=== PATIENT | male | born 1975 | race Caucasian/White ===

== ENCOUNTER 2025-06-25 09:13 | Inpatient (IN) ==
[2025-06-25] MEDS: SODIUM CHLORIDE 0.9% 1,000 ML IV ONE (09:25)
[2025-06-25 09:40] LABS: Hematocrit (blood only) 50.9 % (42.0-52.0); Hemoglobin 18.0 g/dl (14.0-18.0); Immature Granulocytes # (auto) 0.02 K/uL (0.01-0.20); Immature Granulocytes % (auto) 0.2 %; Mean Corpuscular Hemoglobin 31.4 pg (25.0-34.0); Mean Corpuscular Volume 88.7 fL (80.0-100.0); Platelet Count 200 K/uL (130-400); RDW Standard Deviation 38.3 fL (36.4-46.3); Red Blood Count 5.74 M/uL (4.70-6.10); White Blood Count 9.64 K/ul (4.8-10.8)
--- NOTE | 2025-06-25 09:45 | XRay Report ---
Clinical History: Chest pain Technique: A frontal view of the chest was obtained Findings: There are no confluent pulmonary infiltrates. The heart size is at the upper limit of normal. No pleural effusion or pneumothorax is seen. There is no definite pulmonary nodule. No fracture is noted. No foreign body is seen Impression: No active disease Electronically signed by Negro Beckman 06-25-2025 09:45 AM
[2025-06-25 09:58] LABS: Anion Gap 15 (3-11); Blood Urea Nitrogen 14 mg/dl (6-23); Calcium 9.7 mg/dl (8.6-10.3); Carbon Dioxide 17 mmol/L (21-32); Chloride 106 mmol/L (98-107); Creatinine Clr Calc Pharmacy 101.0 ml/min; Glucose 124 mg/dl (70-99(Fasting)); Potassium 3.5 mmol/L (3.5-5.1); Sodium 138 mmol/L (136-145)
[2025-06-25 10:08] LABS: INR 1.0 (0.9-1.1); Partial Thromboplastin Time 27 Seconds (21-31); Prothrombin Time 10.9 Seconds (9.0-12.0)
--- NOTE | 2025-06-25 10:33 | Emergency Department Note ---
Impression & Plan Syncope, Chest pain, Atrial fibrillation with rapid ventricular response, Hypophosphatemia, New onset a-fib, Non-ST elevation [place] (NSTEMI) ED Provider Note NAME: EDWARD SANDERS AGE: 50 SEX: M : 1975 ARRIVES VIA: Walk-In INFORMANT: Patient, family ED PROVIDER(S): Anam Christopher DO CHIEF COMPLAINT: chest pain HPI: This is a 50-year-old male who is otherwise healthy presenting to [facility] for further evaluation of chest pain. Patient is accompanied by family who provide additional history. patient states that he has not felt right in the last day or so. He states that he has had left-sided chest pain that radiates into his left upper extremity and jaw. Patient states that he has palpitations. He is having odd sensations into his left ear. Patient reports the chest pain is severe. Patient reports he had a syncopal episode today and found himself on the ground after he woke up. He is unsure if he struck his head. Does report a positive loss of consciousness. Patient does not use drugs, alcohol or tobacco. No significant family history. Patient reports that he is otherwise been feeling in his normal state of health. They deny fever or chills. No cough or congestion. No shortness of breath. They deny abdominal pain, nausea and vomiting. No urinary complaints. No recent changes in bowel movements. Patient denies recent changes in medications or OTC supplements. Patient offers no other complaints, today. ADDITIONAL HISTORY OBTAINED: Per HPI Chronic Medical/Social Conditions Affecting Care: Per HPI PAST MEDICAL HISTORY: See Below PAST SURGICAL HISTORY: See Below FAMILY HISTORY: See Below SOCIAL HISTORY: See Below HOME MEDICATIONS: See Below ALLERGIES: See Below VITALS: See Below PHYSICAL EXAMINATION: GENERAL: Sitting up in bed, alert, well appearing, well nourished, no distress, non-toxic HEAD: no evidence of external head trauma EYE EXAM: normal conjunctiva. PERRL and EOM's grossly intact. OROPHARYNX: no exudate, no erythema, lips, buccal mucosa, and tongue normal and mucous membranes are moist NECK: supple, no nuchal rigidity, no adenopathy, non-tender LUNGS: Clear to auscultation. Normal chest wall mechanics HEART: no murmurs, tachycardic rate, irregular rhythm, 2+ distal pulses and warm/well perfused ABDOMEN: abdomen soft, non-tender, no masses, no rebound or guarding. BACK: Back is symmetrical on inspection and there is no deformity, no midline tenderness, no CVA tenderness. SKIN: no rashes and no bruising UPPER EXTREMITIES: upper extremities are grossly normal. LOWER EXTREMITIES: No pitting edema. NEURO EXAM: Normal sensorium, GCS 15, normal speech, no gross weakness of arms, no gross weakness of legs. MEDICAL DECISION MAKING: Differential diagnoses includes but not limited to cardiac syncope, vasovagal episode, dehydration, electrolyte derangements, ACS, dysrhythmia, pneumothorax, pneumonia, pulmonary embolism In summary, this is a 50 year old male who presented with chest pain. Differential as above. Nursing notes and pertinent past medical records reviewed. Vital signs reviewed and the patient is tachycardic and hypertensive but otherwise afebrile and HDS. History and presentation revealed patient has an irregular tachycardic rate with a narrow complex. Do feel this is likely atrial fibrillation. Appears to be new onset. While the patient is having chest pain, I do feel that this is likely related to the patient's atrial fibrillation with RVR. He has minimal risk factors for ACS. Doubt significant cardiovascular disease at this time. Physical examination revealed as above. As a result of my initial evaluation, I do feel the patient syncopal episode today is likely related to atrial fibrillation with RVR. Patient has no evidence of trauma on physical examination. No evidence of stroke. Will plan to check electrolytes as well as troponin level. Plan for chest x-ray and EKG. Will manage the patient with IV fluid resuscitation initially but he may benefit from rate control. Patient's blood pressure is hypertensive. Will likely initiate Cardizem. Diagnostics interpreted by me include EKG and cardiac monitoring as listed below: -Cardiac Monitoring: An order was placed for continuous cardiac monitoring. The monitor shows a rate of 60-190s with irregular rhythm. -ECG: Initial EKG independently interpreted by me reveals atrial fibrillation with RVR at [address] segment changes to suggest STEMI. There are ST segment depressions likely related to the patient's rate. Patient completed laboratory studies and imaging. Results independently interpreted by me are No significant anemia or leukocytosis. Coagulation studies are normal. Patient does have hypophosphatemia and IV/oral replenishment obtained. Magnesium is mildly low and given that this may help with conversion or rate control, will provide IV replenishment. Minimal elevation in total bilirubin. No elevation in LFTs. TSH is normal. Troponin is elevated but downtrending on repeat feel the patient's troponin leak is likely secondary to atrial fibrillation with RVR. Repeat EKG following some improvement in rate shows atrial fibrillation with RVR at [address] segment changes to suggest STEMI. There are ST segment depressions and T wave inversions throughout the precordial leads mostly in the lateral leads. Do suspect this is likely related to the patient's rate. Another repeat EKG was obtained because the patient appeared to convert. EKG independently interpreted by me reveals normal sinus rhythm at a ventricular rate of 72 bpm. There are T wave inversions and depressions throughout the precordial leads. These are mostly in the lateral leads. Unfortunately, the patient went back into atrial fibrillation with RVR. He was subsequently given another weight-based dose of Cardizem bolus. Patient subsequently was rate controlled with atrial fibrillation at 80 bpm. Patient still has ST segment depressions and inversions in the precordial leads mostly lateral leads. Given the patient's electrolyte derangements as well as NSTEMI in the setting of new onset atrial fibrillation with RVR, plan to admit to the hospitalist service for further management. Did not feel like heparin infusion was necessary at this point. Patient was loaded with aspirin in the emergency department. IV and p.o. replenishment of electrolytes started. CHADSVASc is 0. Will hold on anticoagulation at this time. Considered discussion with Cardiology but felt to be unncessary as the patient's symptoms and findings today are purely related to new onset atrial fibrillation and doubt significant cardiovascular disease. Ultimately, the decision was made to admit the patient for high risk syncope in the setting of atrial fibrillation with RVR as well as multiple electrolyte derangements and NSTEMI. I discussed the case with the hospitalist service via telephone/[employer] and they are agreeable to admit the patient to their services. Based on the above, including the patient's age, coexisting illnesses, labs, imaging, and exam findings the decision to treat as an inpatient. I discussed the patient with the hospitalist team who recommended admission to their services. They received the medications, treatments, interventions indicated above and their condition remained guarded. I discussed my findings with the patient and their family and they understand and agree with the treatment plan. All patient / family questions were answered to their satisfaction. Consults/Care Managements Discussions: Per MDM ER treatment provided: See above Procedures:none Critical Care: None The chart was completed utilizing [employer] Speech voice recognition software. Grammatical errors, random word insertions, pronoun errors, and incomplete sentences are an occasional consequence of this system due to software limitations, ambient noise, and hardware issues. Any formal questions or concerns about the content, text, or information contained within the body of this dictation should be directly addressed to the physician for clarification. Past Med/Surg History Problem List Non-ST elevation WA (NSTEMI) (Acute) New onset a-fib (Acute) Hypophosphatemia (Acute) Atrial fibrillation with rapid ventricular response (Acute) Chest pain (Acute) Syncope (Acute) Hypophosphatemia Atrial fibrillation with RVR Chest pain Medical History Sciatica Surgical History No pertinent past surgical history Family History Father Myocardial infarction Brother Multiple sclerosis Social History Smoking Status: Never smoker Second Hand Exposure: No; Do You Dip or Chew Tobacco: No; Hx Alcohol Use: No Hx Substance Use: No Preferred Language: Upper Sorbian Communication Ability: Effective Day Care Provider Required: No Beliefs That Will Affect Care: None Current Living Situation: Family and Significant Other current occupational status: employed Other Information That Helps Us Care for You: No Feels Safe at Home: Yes Safety Concerns: Feels Safe At This Time Assistive Devices: Glasses Allergies Allergies Allergy/AdvReac Type Severity Reaction Status Date / Time No Known Allergies Allergy Mild Unverified 04/19/08 08:35 Home Meds Home Medications Medication Instructions Recorded Confirmed No Known Home Medications 06/25/25 06/25/25 Results & Data (ED) Vital Signs Vital Signs - 24 hr 06/25/25 09:15 06/25/25 09:29 06/25/25 09:32 Temperature 36.8 C Temperature Source Temporal Artery Scan Pulse Rate 160 H 173 H Pulse Rate [Apical] 197 H Pulse Rate from SpO2 Sensor Pulse Rhythm Pulse Rhythm [Apical] Regular Pulse Strength [Apical] Normal Respiratory Rate 30 H 20 15 Respiratory Effort / Characteristics Short of Breath Non-Labored Spontaneous Respiratory Depth Normal Respiratory Pattern Regular Blood Pressure 176/109 H 173/104 H Blood Pressure [Left Arm] 173/104 H Blood Pressure Mean 131 110 Blood Pressure Mean [Left Arm] 127 Blood Pressure Position [Left Arm] Pulse Oximetry 99 99 100 Oxygen Delivery Method Room Air Sepsis Recent Fever Within 48 Hours No Sepsis New/Unexplained Change in Mental Status No Sepsis Action Taken by Nursing No Action Required 06/25/25 09:33 06/25/25 09:34 06/25/25 09:39 Temperature Temperature Source Pulse Rate 186 H 139 H Pulse Rate [Apical] Pulse Rate from SpO2 Sensor Pulse Rhythm Regular Pulse Rhythm [Apical] Pulse Strength [Apical] Respiratory Rate 20 Respiratory Effort / Characteristics Respiratory Depth Respiratory Pattern Blood Pressure 195/153 H Blood Pressure [Left Arm] Blood Pressure Mean 158 Blood Pressure Mean [Left Arm] Blood Pressure Position [Left Arm] Pulse Oximetry 100 Oxygen Delivery Method Room Air Sepsis Recent Fever Within 48 Hours Sepsis New/Unexplained Change in Mental Status Sepsis Action Taken by Nursing 06/25/25 09:45 06/25/25 10:27 06/25/25 11:23 Temperature Temperature Source Pulse Rate 144 H Pulse Rate [Apical] 115 H 91 H Pulse Rate from SpO2 Sensor 121 H Pulse Rhythm Pulse Rhythm [Apical] Irregular Regular Pulse Strength [Apical] Normal Respiratory Rate 12 16 17 Respiratory Effort / Characteristics Non-Labored Spontaneous Non-Labored Spontaneous Respiratory Depth Normal Normal Respiratory Pattern Regular Regular Blood Pressure 165/102 H Blood Pressure [Left Arm] 137/98 117/84 Blood Pressure Mean 123 Blood Pressure Mean [Left Arm] 111 95 Blood Pressure Position [Left Arm] Semi-fowlers Pulse Oximetry 100 100 98 Oxygen Delivery Method Room Air Room Air Sepsis Recent Fever Within 48 Hours Sepsis New/Unexplained Change in Mental Status Sepsis Action Taken by Nursing 06/25/25 11:55 06/25/25 12:05 06/25/25 13:52 Temperature Temperature Source Pulse Rate 67 Pulse Rate [Apical] 80 64 Pulse Rate from SpO2 Sensor Pulse Rhythm Pulse Rhythm [Apical] Regular Pulse Strength [Apical] Normal Respiratory Rate 20 14 Respiratory Effort / Characteristics Non-Labored Spontaneous Non-Labored Respiratory Depth Normal Normal Respiratory Pattern Regular Regular Blood Pressure Blood Pressure [Left Arm] 125/86 143/86 H Blood Pressure Mean Blood Pressure Mean [Left Arm] 99 105 Blood Pressure Position [Left Arm] Pulse Oximetry 98 98 Oxygen Delivery Method Room Air Room Air Sepsis Recent Fever Within 48 Hours Sepsis New/Unexplained Change in Mental Status Sepsis Action Taken by Nursing 06/25/25 13:52 Temperature Temperature Source Pulse Rate Pulse Rate [Apical] Pulse Rate from SpO2 Sensor Pulse Rhythm Pulse Rhythm [Apical] Pulse Strength [Apical] Respiratory Rate Respiratory Effort / Characteristics Non-Labored Spontaneous Respiratory Depth Normal Respiratory Pattern Regular Blood Pressure Blood Pressure [Left Arm] Blood Pressure Mean Blood Pressure Mean [Left Arm] Blood Pressure Position [Left Arm] Pulse Oximetry Oxygen Delivery Method Room Air Sepsis Recent Fever Within 48 Hours Sepsis New/Unexplained Change in Mental Status Sepsis Action Taken by Nursing Laboratory Data 06/25/25 09:24 06/25/25 09:24 Lab Results 06/25/25 06/25/25 06/25/25 Range/Units 09:24 11:12 13:23 WBC 9.64 (4.8-10.8) K/ul RBC 5.74 (4.70-6.10) M/uL Hgb 18.0 (14.0-18.0) g/dl Hct 50.9 (42.0-52.0) % MCV 88.7 (80.0-100.0) fL MCH 31.4 (25.0-34.0) pg MCHC 35.4 (32.0-36.0) g/dL RDW Std Deviation 38.3 (36.4-46.3) fL RDW Coeff of Leonidas 11.9 (11.5-14.5) % Plt Count 200 (130-400) K/uL MPV 11.9 (9.4-12.4) fL Immature Gran % (Auto) 0.2 % Neut % (Auto) 55.1 % Lymph % (Auto) 33.0 % Thomas % (Auto) 10.3 % Eos % (Auto) 0.8 % Baso % (Auto) 0.6 % Neut # (Auto) 5.31 (1.40-6.50) K/uL Lymph # (Auto) 3.18 (1.20-3.40) K/uL Thomas # (Auto) 0.99 H (0.11-0.59) K/uL Eos # (Auto) 0.08 (0.00-0.50) K/uL Baso # (Auto) 0.06 (0.00-0.20) K/uL Immature Gran # (Auto) 0.02 (0.01-0.20) K/uL PT 10.9 (9.0-12.0) Seconds INR 1.0 (0.9-1.1) APTT 27 (21-31) Seconds PTT Ratio 1.0 Sodium 138 (136-145) mmol/L Potassium 3.5 (3.5-5.1) mmol/L Chloride 106 (98-107) mmol/L Carbon Dioxide 17 L (21-32) mmol/L Anion Gap 15 H (3-11) BUN 14 (6-23) mg/dl Creatinine 1.04 (0.6-1.4) mg/dl Est Cr Clr Drug Dosing 101.0 ml/min eGFR 86.39 BUN/Creatinine Ratio 13.5 (10-20) Glucose 124 H (70-99(Fasting)) mg/dl Calcium 9.7 (8.6-10.3) mg/dl Phosphorus < 1.0 L* (2.5-4.9) mg/dl Magnesium 1.9 (1.7-2.4) mg/dl Total Bilirubin 1.4 H (0.2-1.0) mg/dl AST 25 (13-39) U/L ALT 24 (7-52) U/L Alkaline Phosphatase 62 (34-104) U/L Total Creatine Kinase 87 (30-223) U/L Troponin I High Sens 538.6 H* 416.5 H* D (0-20) pg/ml Total Protein 8.3 (6.0-8.3) gm/dl Albumin 4.7 (3.4-5.0) gm/dl Globulin 3.6 (2.5-4.0) gm/dl Albumin/Globulin Ratio 1.3 (0.9-2) Lipase 26 (11-82) U/L 25-OH Vitamin D Total 24.3 L (30-100) ng/ml TSH 1.257 (0.300-4.500) uIu/ml PTH Intact 104.3 H (12.0-88.0) pg/ml Administered Medications Potassium Phosphate 30 mmol/ (Sodium Chloride) 510 mls @ 88 mls/hr IV ONE ONE Stop: 06/25/25 17:47 Last Admin: 06/25/25 12:10 Dose: 88 mls/hr Documented By: SHERRIE Heparin Sodium/Dextrose (Heparin 89892 Unit/500 Ml D5w) 25,000 units in 500 mls @ 31 mls/hr IV .Q16H8M SHINE; Protocol Stop: 07/25/25 12:44 Last Admin: 06/25/25 13:37 Dose: 1,550 units/hr, 31 mls/hr Documented By: SHERRIE Co-signed By: GISSEL Discontinued Medications Aspirin (Aspirin Chew 324 Mg) 324 mg PO NOW STA Stop: 06/25/25 10:34 Last Admin: 06/25/25 11:13 Dose: 324 mg Documented By: SHERRIE Diltiazem HCl (Diltiazem Hcl 5 Mg/Ml 5 Ml Vial) 15 mg IV NOW STA Stop: 06/25/25 10:10 Last Admin: 06/25/25 10:18 Dose: 15 mg Documented By: SHERRIE Co-signed By: GISSEL Diltiazem HCl (Diltiazem Hcl 5 Mg/Ml 5 Ml Vial) 25 mg IV NOW STA Stop: 06/25/25 10:40 Last Admin: 06/25/25 11:14 Dose: 25 mg Documented By: SHERRIE Co-signed By: GISSEL Heparin Sodium (Porcine) (Heparin Sod (Porcine) 1000 Unit/Ml) Confirm Administered Dose 1,000 units .ROUTE .STK-MED ONE Stop: 06/25/25 12:31 Last Admin: 06/25/25 13:38 Dose: 7,000 units Documented By: SHERRIE Co-signed By: GISSEL Heparin Sodium/Dextrose (Heparin Iv Adult Wt-Based Standard W/ Initial Bolus Protocol) 1 each IV NOW STA; Protocol Stop: 06/25/25 12:19 Last Admin: 06/25/25 13:38 Dose: Not Given Documented By: SHERRIE Heparin Sodium/Dextrose (Heparin 32146 Unit/500 Ml D5w) Confirm Administered Dose 25,000 units IV .STK-MED ONE Stop: 06/25/25 12:30 Last Admin: 06/25/25 13:38 Dose: Not Given Documented By: SHERRIE Sodium Chloride (Nss) 1,000 mls @ 999 mls/hr IV .Q1H1M ONE Stop: 06/25/25 10:21 Last Infusion: 06/25/25 10:29 Dose: Infused Documented By: Admin: 06/25/25 09:25 Dose: 999 mls/hr Documented By: SHERRIE Magnesium Sulfate/Dextrose (Magnesium Sulfate / D5w) 1 gm in 100 mls @ 100 mls/hr IV Q1H SHINE Stop: 06/25/25 13:24 Last Admin: 06/25/25 13:37 Dose: 100 mls/hr Documented By: Infusion: 06/25/25 13:36 Dose: Infused Documented By: Admin: 06/25/25 12:07 Dose: 100 mls/hr Documented By: SHERRIE Metoprolol Tartrate (Metoprolol Tartrate 25 Mg Tab) 25 mg PO Q6H SHINE Stop: 07/25/25 12:29 Last Admin: 06/25/25 13:39 Dose: Not Given Documented By: SHERRIE Potassium Phosphate (Potassium Phos 3 Mmol/1 Ml Infusion) 30 mmol IV NOW STA Stop: 06/25/25 11:25 Last Admin: 06/25/25 12:10 Dose: Not Given Documented By: SHERRIE Potassium Phosphate (Pot Phosphate Monobasic W/ Sod Tab) 2 tab PO NOW STA Stop: 06/25/25 11:25 Last Admin: 06/25/25 12:10 Dose: 2 tab Documented By: SHERRIE Imaging Data Radiologist's Impression: Chest X-Ray 06/25/25 09:21 Clinical History: Chest pain Technique: A frontal view of the chest was obtained Findings: There are no confluent pulmonary infiltrates. The heart size is at the upper limit of normal. No pleural effusion or pneumothorax is seen. There is no definite pulmonary nodule. No fracture is noted. No foreign body is seen Impression: No active disease Electronically signed by Negro Beckman 06-25-2025 09:45 AM Discharge Plan Visit Data Chief Complaint: Chest Pain Stated Complaint: CHEST PAIN,NUMBNESS ED Provider: Anam Christopher Discharge Problem: Syncope, Chest pain, Atrial fibrillation with rapid ventricular response, Hypophosphatemia, New onset a-fib, Non-ST elevation WA (NSTEMI) Patient Disposition: Admitted As Inpatient Condition: Fair Forms Stand Alone Forms: Motion Dispatch Prescriptions Prescriptions: No Action No Known Home Medications Referrals Referrals: PCP,NO [Primary Care Provider] -
[2025-06-25 10:40] LABS: Alanine Aminotransferase 24 U/L (7-52); Albumin Globulin Ratio 1.3 (0.9-2); Alkaline Phosphatase 62 U/L (34-104); Bilirubin,Total 1.4 mg/dl (0.2-1.0); Globulin 3.6 gm/dl (2.5-4.0); Lipase 26 U/L (11-82); Magnesium 1.9 mg/dl (1.7-2.4); Total Protein 8.3 gm/dl (6.0-8.3)
[2025-06-25 11:09] LABS: Thyroid Stimulating Hormone 1.257 uIu/ml (0.300-4.500)
[2025-06-25] MEDS: ASPIRIN CHEW 324 MG PO STA (11:13)
[2025-06-25] MEDS: MAGNESIUM SULFATE / D5W 1 GM/100 ML BAG IV SCH (12:07)
--- NOTE | 2025-06-25 12:09 | History & Physical Report ---
Date of Service June 25, 2025 Assessment & Plan (1) Atrial fibrillation with RVR: (2) Chest pain: (3) Hypophosphatemia: Plan This is a 50 y/o male with no cardiac history who presented to the ED today with acute onset of chest pain radiating to left arm and left jaw and a probable syncopal event at home (unwitnessed). Work-up in the ED revealed atrial fibrillation with RVR on presention, initial rate in the 160s. Initial troponin was 538.6, repeat troponin was 416.5. Pt was given diltiazem 15 mg IV then 25 mg IV in the ED, converted to NSR with current rate in the 70s. Phosphorus found to be markedly low at <1.0 - repletion both IV and oral has been started. Pt refe rred for admission for further evaluation and management. #Atrial fibrillation with RVR - likely related to electrolyte abnormality noted in the ED - Admit to PCU - Heparin drip, standard drip with bolus for now - will discuss need for future anticoagulation with cardiology pending clinical course. - Start metoprolol succinate 25 mg BID, has converted to NSR in the ED - Check ECHO - Consult cardiology for additional recommendations - Repeat EKG in the AM #Hypophosphatemia - unclear etiology - Repletion started in the ED - will recheck BMP and phos Q6 hrs starting at 5 pm today - Consult nephrology for assistance for work-up and management - Check vitamin D levels, parathyroid hormone, CK #Chest pain - likely related to demand from afib with RVR, currently resolved. Will manage as NSTEMI for now. - Trend troponin Q6hrs x 2 - Monitor in PCU - Aspirin 81 mg daily (received 324 mg in the ED), add statin starting today - Lipid panel, A1c in the AM - Cardio consult, ECHO as above - EKG prn chest pain Pt seen and reviewed with collaborating physician, Dr. Chapman. Plan of care discussed and as outlined above. Code status: full code DVT prophylaxis: on heparin gtt Emmett Ordonez PA-C History of Present Illness Chief Complaint: chest pain Primary Care Provider: NO PCP This is a 50 y/o male with sciatica but no significant cardiac history who presents to the ED today with left chest pain that started this morning. He was home alone this monring and went to the bathroom, thinks that he passed out as the next thing that he remembers is waking up on the floor with no memory of how he got there. He lay on the floor for a few minutes then tried to get up. Notes that he felt very dizzy and was diaphoretic but was able to get up and walk over to neighbors for help, asked them to bring him to the ED. He describes episodes of feeling like he was being squeezed tightly ("like being bear hugged") and thus was unable to breathe - he recalls this happening at least seven times. Describes chest pain in left chest that radiated to the left jaw and left arm that has since resolved in the ED. [place] so work is very physically active, does not typically have significant chest pain or dyspnea. He was off work yesterday but felt fine at work two days ago. Last week, he started with increased fatigue, which has continued - attributed to overdoing it at work but now questioning if this was related to today's symptoms. His father of an GA in his 50s. 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 Reports that he has been staying hydrated. No recent diarrhea, abdominal pain, urinary symptoms, fevers, chills. Allergies Allergy/AdvReac Type Severity Reaction Status Date / Time No Known Allergies Allergy Mild Unverified 04/19/08 08:35 Home Medications Medication Instructions Recorded Confirmed Type No Known Home Medications 06/25/25 06/25/25 History Past Med/Surg History Problem List Hypophosphatemia Atrial fibrillation with RVR Chest pain Medical History Sciatica Surgical History No pertinent past surgical history Family History Father Myocardial infarction Brother Multiple sclerosis Social History Smoking Status: Never smoker Hx Alcohol Use: No Hx Substance Use: No Preferred Language: Singaporean current occupational status: employed Feels Safe at Home: Yes Review of Systems Review of Systems: All systems reviewed & are unremarkable except as noted in Subjective Physical Exam Physical Exam: Please see physician note for details of the physical exam Results & Data Results & Data Vital Signs (Past 12 Hours) Vital Signs Temp Pulse Pulse Resp BP BP Pulse Ox 06/25/25 12:05 80 20 125/86 98 06/25/25 11:55 67 06/25/25 11:23 91 H 17 117/84 98 06/25/25 10:27 115 H 16 137/98 100 06/25/25 09:45 144 H 12 165/102 H 100 06/25/25 09:39 139 H 20 100 06/25/25 09:34 195/153 H 06/25/25 09:33 186 H 06/25/25 09:32 173 H 15 173/104 H 100 06/25/25 09:29 197 H 20 173/104 H 99 06/25/25 09:15 36.8 C 160 H 30 H 176/109 H 99 O2 Del Method 06/25/25 12:05 Room Air 06/25/25 11:55 06/25/25 11:23 Room Air 06/25/25 10:27 Room Air 06/25/25 09:45 06/25/25 09:39 Room Air 06/25/25 09:34 06/25/25 09:33 06/25/25 09:32 06/25/25 09:29 06/25/25 09:15 Room Air Laboratory Results Lab Results 06/25/25 06/25/25 Range/Units 09:24 11:12 WBC 9.64 (4.8-10.8) K/ul RBC 5.74 (4.70-6.10) M/uL Hgb 18.0 (14.0-18.0) g/dl Hct 50.9 (42.0-52.0) % MCV 88.7 (80.0-100.0) fL MCH 31.4 (25.0-34.0) pg MCHC 35.4 (32.0-36.0) g/dL RDW Std Deviation 38.3 (36.4-46.3) fL RDW Coeff of Leonidas 11.9 (11.5-14.5) % Plt Count 200 (130-400) K/uL MPV 11.9 (9.4-12.4) fL Immature Gran % (Auto) 0.2 % Neut % (Auto) 55.1 % Lymph % (Auto) 33.0 % [place] % (Auto) 10.3 % Eos % (Auto) 0.8 % Baso % (Auto) 0.6 % Neut # (Auto) 5.31 (1.40-6.50) K/uL Lymph # (Auto) 3.18 (1.20-3.40) K/uL [place] # (Auto) 0.99 H (0.11-0.59) K/uL Eos # (Auto) 0.08 (0.00-0.50) K/uL Baso # (Auto) 0.06 (0.00-0.20) K/uL Immature Gran # (Auto) 0.02 (0.01-0.20) K/uL PT 10.9 (9.0-12.0) Seconds INR 1.0 (0.9-1.1) APTT 27 (21-31) Seconds PTT Ratio 1.0 Sodium 138 (136-145) mmol/L Potassium 3.5 (3.5-5.1) mmol/L Chloride 106 (98-107) mmol/L Carbon Dioxide 17 L (21-32) mmol/L Anion Gap 15 H (3-11) BUN 14 (6-23) mg/dl Creatinine 1.04 (0.6-1.4) mg/dl Est Cr Clr Drug Dosing 101.0 ml/min eGFR 86.39 BUN/Creatinine Ratio 13.5 (10-20) Glucose 124 H (70-99(Fasting)) mg/dl Calcium 9.7 (8.6-10.3) mg/dl Phosphorus < 1.0 L* (2.5-4.9) mg/dl Magnesium 1.9 (1.7-2.4) mg/dl Total Bilirubin 1.4 H (0.2-1.0) mg/dl AST 25 (13-39) U/L ALT 24 (7-52) U/L Alkaline Phosphatase 62 (34-104) U/L Troponin I High Sens 538.6 H* 416.5 H* D (0-20) pg/ml Total Protein 8.3 (6.0-8.3) gm/dl Albumin 4.7 (3.4-5.0) gm/dl Globulin 3.6 (2.5-4.0) gm/dl Albumin/Globulin Ratio 1.3 (0.9-2) Lipase 26 (11-82) U/L TSH 1.257 (0.300-4.500) uIu/ml Diagnostic Findings Chest X-Ray 06/25/25 09:21 Clinical History: Chest pain Technique: A frontal view of the chest was obtained Findings: There are no confluent pulmonary infiltrates. The heart size is at the upper limit of normal. No pleural effusion or pneumothorax is seen. There is no definite pulmonary nodule. No fracture is noted. No foreign body is seen Impression: No active disease Electronically signed by Negro Beckman 06-25-2025 09:45 AM Medications Administered Discontinued Medications Aspirin (Aspirin Chew 324 Mg) 324 mg PO NOW STA Stop: 06/25/25 10:34 Last Admin: 06/25/25 11:13 Dose: 324 mg Documented By: SHERRIE Diltiazem HCl (Diltiazem Hcl 5 Mg/Ml 5 Ml Vial) 15 mg IV NOW STA Stop: 06/25/25 10:10 Last Admin: 06/25/25 10:18 Dose: 15 mg Documented By: SHERRIE Co-signed By: GISSEL Diltiazem HCl (Diltiazem Hcl 5 Mg/Ml 5 Ml Vial) 25 mg IV NOW STA Stop: 06/25/25 10:40 Last Admin: 06/25/25 11:14 Dose: 25 mg Documented By: SHERRIE Co-signed By: GISSEL Sodium Chloride (Nss) 1,000 mls @ 999 mls/hr IV .Q1H1M ONE Stop: 06/25/25 10:21 Last Infusion: 06/25/25 10:29 Dose: Infused Documented By: Admin: 06/25/25 09:25 Dose: 999 mls/hr Documented By: SHERRIE Supervising Physician Co-Signing Physician Notes Patient seen and examined independently. Discussed with above provider. Patient presents to the hospital with dizziness, chest pain radiating to the jaw and arm. He reported fatigue for the last couple of weeks. He was found to have severe hypophosphatemia, atrial fibrillation with RVR and elevated troponin. Suspect hypophosphatemia is the spotter driver of A-fib with RVR, NSTEMI. Repletion of phosphate started; will follow-up on BMP and phosphorus level every 6 hour; consulted nephrology for comanagement. For A-fib with RVRpatient converted spontaneously to sinus rhythm. She is now started on metoprolol succinate 25 mg twice daily. He is also started on heparin drip. Obtain echocardiogram. Cardiology consulted. Trend troponin. Continue on statin and aspirin. On physical examination; Constitutional: WD/WN, vitals as above, NAD, sitting up in bed, pleasant, conversing easily Respiratory: normal respiratory effort, lungs clear to auscultation, no wheeze, rales, rhonchi. Normal insp/exp effort, no accessory muscle use Cardiovascular: RRR, no murmur, no edema Vessels: no JVD or carotid bruit Chest: normal inspection of chest Abdomen: normal bowel sounds, soft, nontender, no hepatosplenomegaly Musculoskeletal: no cyanosis or clubbing, extremities motor strength 5/5 Skin: no rashes, warm and dry normal turgor Neurologic: PERRL, EOMI, accommodation nl, no face palsy, no dysarthria CN's II- XI intact bilaterally and moves all extremities Psychiatric: A+Ox3, euthymic affect I have reviewed the advanced practitioner's documentation, and I agree with, and take responsibility for the plan of care I spent a total of 30 minutes coordinating, documenting, and providing care for this patient excluding time spent in the performance of separately billed services. All of the aforementioned completed while collaborating with the assigned advanced practitioner for a full treatment plan (2) Chest pain Chest pain type: unspecified Qualified Code(s): R07.9 - Chest pain, unspecified
[2025-06-25] MEDS: POT PHOSPHATE MONOBASIC W/ SOD TAB PO STA (12:10)
[2025-06-25] MEDS: POTASSIUM PHOS 3 MMOL/1 ML INFUSION IV STA (12:10)
[2025-06-25] MEDS: POTASSIUM PHOSPHATE 30 MMOL in SODIUM CHLORIDE 0.9% 500 ML IV ONE (12:10)
[2025-06-25] MEDS ORDERED: HEPARIN SOD (PORCINE) 1000 UNIT/ML IV ONE (12:33)
[2025-06-25 13:05] LABS: Creatine Kinase 87.0 U/L (30-223)
[2025-06-25] MEDS: HEPARIN 25000 UNIT/500 ML D5W 25,000 UNITS/500 ML BAG IV SCH (13:37)
[2025-06-25] MEDS: HEPARIN 25000 UNIT/500 ML D5W IV ONE (13:38)
[2025-06-25] MEDS: HEPARIN SOD (PORCINE) 1000 UNIT/ML ONE (13:38)
[2025-06-25] MEDS: Heparin IV Adult Wt-Based Standard w/ INITIAL Bolus Protocol IV STA (13:38)
[2025-06-25] MEDS: METOPROLOL TARTRATE 25 MG TAB PO SCH (13:39)
[2025-06-25] MEDS ORDERED: ACETAMINOPHEN 325 MG TAB PO PRN (16:51)
[2025-06-25] MEDS: ATORVASTATIN 40 MG TAB PO SCH (17:03)
[2025-06-25] MEDS: METOPROLOL SUCC 25MG EXT REL TAB PO SCH (17:03)
[2025-06-25 17:51] LABS: Anion Gap 8.0 (3-11); Blood Urea Nitrogen 11.0 mg/dl (6-23); Calcium 8.7 mg/dl (8.6-10.3); Carbon Dioxide 23.0 mmol/L (21-32); Chloride 108.0 mmol/L (98-107); Creatinine Clr Calc Pharmacy 145.9 ml/min; Glucose 96.0 mg/dl (70-99(Fasting)); Potassium 4.2 mmol/L (3.5-5.1); Sodium 139.0 mmol/L (136-145)
[2025-06-25 20:46] LABS: ANTI-Xa, UFH(UnfractionatedHep 0.76 IU/ml (0.3-0.7)
[2025-06-25 23:23] LABS: Anion Gap 7.0 (3-11); Blood Urea Nitrogen 15.0 mg/dl (6-23); Calcium 8.6 mg/dl (8.6-10.3); Carbon Dioxide 23.0 mmol/L (21-32); Chloride 108.0 mmol/L (98-107); Creatinine Clr Calc Pharmacy 134.4 ml/min; Glucose 106.0 mg/dl (70-99(Fasting)); Potassium 4.0 mmol/L (3.5-5.1); Sodium 138.0 mmol/L (136-145)
[2025-06-26 03:41] LABS: Hematocrit (blood only) 45.3 % (42.0-52.0); Hemoglobin 15.5 g/dl (14.0-18.0); Immature Granulocytes # (auto) 0.02 K/uL (0.01-0.20); Immature Granulocytes % (auto) 0.2 %; Mean Corpuscular Hemoglobin 31.2 pg (25.0-34.0); Mean Corpuscular Volume 91.1 fL (80.0-100.0); Platelet Count 144 K/uL (130-400); RDW Standard Deviation 40.4 fL (36.4-46.3); Red Blood Count 4.97 M/uL (4.70-6.10); White Blood Count 8.37 K/ul (4.8-10.8)
[2025-06-26 03:58] LABS: Anion Gap 4.0 (3-11); Blood Urea Nitrogen 14.0 mg/dl (6-23); Calcium 8.8 mg/dl (8.6-10.3); Carbon Dioxide 24.0 mmol/L (21-32); Chloride 109.0 mmol/L (98-107); Cholesterol 119.0 mg/dl (0-200); Creatinine Clr Calc Pharmacy 124.7 ml/min; Glucose 104.0 mg/dl (70-99(Fasting)); HDL Cholesterol 35.0 mg/dl; Potassium 4.1 mmol/L (3.5-5.1); Sodium 137.0 mmol/L (136-145); Triglycerides 84.0 mg/dl (0-150)
[2025-06-26 04:11] LABS: ANTI-Xa, UFH(UnfractionatedHep 0.66 IU/ml (0.3-0.7)
--- NOTE | 2025-06-26 07:29 | Electrocardiogram Report ---
Test Reason : Blood Pressure : */* mmHG Vent. Rate : 161 BPM Atrial Rate : * BPM P-R Int : * ms QRS Dur : 84 ms QT Int : 270 ms P-R-T Axes : * -3 -24 degrees QTcB Int : 441 ms Atrial fibrillation with rapid ventricular response Possible Inferior infarct , age undetermined Abnormal ECG No previous ECGs available Confirmed by Beni Edward ([id number]) on 06/26/2025 7:29:40 AM Referred By: Confirmed By: Beni Edward
--- NOTE | 2025-06-26 07:30 | Electrocardiogram Report ---
Test Reason : Blood Pressure : */* mmHG Vent. Rate : 120 BPM Atrial Rate : * BPM P-R Int : * ms QRS Dur : 78 ms QT Int : 316 ms P-R-T Axes : * -9 -13 degrees QTcB Int : 446 ms Atrial fibrillation with rapid ventricular response possible Inferior infarct (cited on or before 25-Jun-2025) Poor R wave progression, consider anterior DC vs. lead placement vs. LVH Abnormal ECG When compared with ECG of 25-Jun-2025 09:20, (unconfirmed) T wave inversion now evident in Anterolateral leads Confirmed by Beni Edward ([id number]) on 06/26/2025 7:29:57 AM Referred By: REFERRED SELF Confirmed By: Beni Edward
[2025-06-26 07:35] LABS: Hemoglobin A1C 4.8 % (4.5-5.6)
--- NOTE | 2025-06-26 08:32 | XCELERA ---
[id number]
[2025-06-26] MEDS: ASPIRIN 81 MG ECTAB PO SCH (09:01)
--- NOTE | 2025-06-26 09:21 | Cardiology Consultation ---
Date of Consultation June 26, 2025 Assessment & Plan (1) Non-ST elevation MO (NSTEMI): (2) New onset a-fib: (3) Chest pain: (4) Syncope: (5) HTN, goal below 130/80: Plan Chest pain, non-ST segment elevation myocardial infarction * Abnormal EKG, anterolateral and inferior STT wave abnormality. * Elevated high-sensitivity troponin: 538.6 -> 416.5 -> 1871.2 -> 2174.9 -> 1236.9 pg/mL * Abnormal resting echocardiography with mild to moderate reduction in LV systolic function, EF 40 to 45%, apical akinesis, mid anteroseptum, anterior apical, and apical septum wall akinesis with apical echoes consistent with trabeculae, cannot rule out associated thrombus. * Patient chest pain-free since admission * Continue Aspirin, beta-tyler, high intensity statin therapy with atorvastatin 80 mg/day, and IV heparin * Add nitro paste if needed for hypertension * NPO after midnight on 06/27/2025 for cardiac catheterization in AM of 06/28/2025 unless recurrent discomfort. New onset atrial fibrillation with a rapid ventricular response * Continue metoprolol succinate 25 mg twice per day * Continue heparin, with eventual transition to Eliquis 5 mg twice per day * Maintain telemetry Syncope. * ? secondary to above versus other. * Maintain telemetry. * Further evaluation to be determined pending the above. Supervising Physician Co-Signing Physician Notes Patient seen and examined. Past medical history, surgical history, social history and family history have been reviewed. The medical record and all the above studies have been reviewed. Case DW CORRINA including management. 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 Sheldon Pak MD History of Present Illness Rizwan Brown is a 50-year-old male who awoke in the morning of Friday, June 25, 2025 with what he though was muscular soreness that he attributed to doing a lot of physical activity recently including spreading mulch. He describes getting up and going to the bathroom, standing to urinate and finding himself on the floor. He describes his left side is feeling funny and hearing a swishing noise while on the ground. He describes getting up and leaning or falling against the bedroom door, once again finding himself on the ground. Eventually was able to make it to the bed where he felt weak, dizzy, and diaphoretic. He notes knowing something was wrong and needing to be evaluated. While walking to the truck he began to have severe substernal chest discomfort, 10 out of 10, described as being placed in a bearhug and unable to breathe, discomfort radiating into the jaw and down the left side. Initial EKG in ER revealed atrial fibrillation with a rapid ventricular response with possible old inferior infarct and upsloping anterolateral ST depression. A second EKG in the ER revealed atrial fibrillation with a ventricular rate of 120 bpm with a possible old inferior infarct, poor R wave progression, and STT wave changes anterolaterally suggestive of ischemia. In the ER patient received 15 mg followed by 25 mg of IV diltiazem. He was also given liter fluid resuscitation, 324 mg aspirin, magnesium, and potassium phosphate. Patient has been chest pain-free since admission. Patient denies prior cardiac history. He notes not going to the doctor regularly. He is active in and around the home as well as at work without activity related cardiopulmonary symptoms. Past Medical and Surgical History: Sciatica Family History: Father with an MO at 55. Brother with MS. Mother's history is unknown. Social History: Non-smoker. No smokeless tobacco. No alcohol since 1995. No illegal or illicit drug use. Lives in [place]. Girlfriend. Two children. 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 Allergies Allergy/AdvReac Type Severity Reaction Status Date / Time No Known Allergies Allergy Mild Unverified 04/19/08 08:35 Home Medications Medication Instructions Recorded Confirmed Type No Known Home Medications 06/25/25 06/25/25 History Patient History Medical History Sciatica Surgical History No pertinent past surgical history Family History Father Myocardial infarction Brother Multiple sclerosis Social History Smoking Status: Never smoker Second Hand Exposure: No; Do You Dip or Chew Tobacco: No; Hx Alcohol Use: No Hx Substance Use: No Preferred Language: Jordanian Communication Ability: Effective Rooming House Inspector Required: No Beliefs That Will Affect Care: None Current Living Situation: Family and Significant Other Current Living Situation Comment: with family current occupational status: employed Other Information That Helps Us Care for You: No Feels Safe at Home: Yes Safety Concerns: Feels Safe At This Time Assistive Devices: Glasses Review of Systems Review of Systems: Complete Review of Systems: Constitutional: No fevers, chills, or night sweats. HEENT: Glasses. Recurrent strep throat. No history of amaurosis fugax. No cataracts, macular degeneration, or glaucoma. Pulmonary: No history of asthma, emphysema, COPD, or sleep apnea. No history of PE. Cardiac: See above. GI/Abd: No dysphagia. No GERD. No melana or hematochezia. No kidney problems. No liver problems. No history of pancreatic issues. Vascular: No history of carotid artery disease, AAA, or lower extremity claudication/PAD. Hematologic: No coagulation disorder, anemia, or abnormal bleeding. Musculoskeletal: Sciatica Skin: No rash. No tick bites Neurologic: No history of TIA/CVA, or seizure disorder. Male : No hematuria Endocrine: No history of diabetes mellitus. No thyroid trouble. Complete Review of Systems is as stated above, negative, or noncontributory Physical Exam Physical Exam: General: A&Ox3. NAD. HENT: Normocephalic. Atraumatic. Eyes: PER. Conjunctiva pink, sclera clear. Neck: No carotid bruits. No JVD. No HJR. Heart: RRR, 56 bpm. No murmur. No rub. No gallop. PMI is nondisplaced. Lungs: Clear to auscultation. Abdomen: +BS. Soft. Nontender. No masses or organomegaly. Extremities: No clubbing, cyanosis, or edema. Limited neurological examination is without focal deficits. Pulses: radial=2/4, posterior tibial=2/4. Results & Data Vital Signs (Past 12 Hours) Vital Signs Temp Pulse Resp BP Pulse Ox O2 Del Method 06/26/25 07:31 36.5 C 53 L 18 139/84 98 Room Air 06/26/25 03:15 36.5 C 47 L 18 119/76 98 Room Air 06/25/25 22:28 36.5 C 53 L 18 126/78 97 Room Air Laboratory Results Cardiac Enzymes 06/25/25 06/25/25 06/25/25 Range/Units 09:24 11:12 16:50 AST 25 (13-39) U/L Troponin I High Sens 538.6 H* 416.5 H* D 1871.2 H* D (0-20) pg/ml 06/25/25 06/26/25 Range/Units 22:42 07:05 AST (13-39) U/L Troponin I High Sens 2174.9 H* 1236.9 H* D (0-20) pg/ml Coagulation 06/25/25 Range/Units 09:24 PT 10.9 (9.0-12.0) Seconds APTT 27 (21-31) Seconds Lipids 06/26/25 Range/Units 03:18 Triglycerides 84 (0-150) mg/dl Cholesterol 119 (0-200) mg/dl HDL Cholesterol 35 mg/dl Cholesterol/HDL Ratio 3.4 (0-5) CBC 06/25/25 06/26/25 Range/Units 09:24 03:18 WBC 9.64 8.37 (4.8-10.8) K/ul RBC 5.74 4.97 (4.70-6.10) M/uL Hgb 18.0 15.5 (14.0-18.0) g/dl Hct 50.9 45.3 (42.0-52.0) % Plt Count 200 144 (130-400) K/uL Neut # (Auto) 5.31 5.34 (1.40-6.50) K/uL Lymph # (Auto) 3.18 2.00 (1.20-3.40) K/uL [place] # (Auto) 0.99 H 0.84 H (0.11-0.59) K/uL Eos # (Auto) 0.08 0.11 (0.00-0.50) K/uL Baso # (Auto) 0.06 0.06 (0.00-0.20) K/uL Comprehensive Metabolic Panel 06/25/25 06/25/25 06/25/25 Range/Units 09:24 16:50 22:42 Sodium 138 139 138 (136-145) mmol/L Potassium 3.5 4.2 4.0 (3.5-5.1) mmol/L Chloride 106 108 H 108 H (98-107) mmol/L Carbon Dioxide 17 L 23 23 (21-32) mmol/L BUN 14 11 15 (6-23) mg/dl Creatinine 1.04 0.72 D 0.77 (0.6-1.4) mg/dl Glucose 124 H 96 106 H (70-99(Fasting)) mg/dl Calcium 9.7 8.7 8.6 (8.6-10.3) mg/dl AST 25 (13-39) U/L ALT 24 (7-52) U/L Alkaline Phosphatase 62 (34-104) U/L Total Protein 8.3 (6.0-8.3) gm/dl Albumin 4.7 (3.4-5.0) gm/dl 06/26/25 Range/Units 03:18 Sodium 137 (136-145) mmol/L Potassium 4.1 (3.5-5.1) mmol/L Chloride 109 H (98-107) mmol/L Carbon Dioxide 24 (21-32) mmol/L BUN 14 (6-23) mg/dl Creatinine 0.83 (0.6-1.4) mg/dl Glucose 104 H (70-99(Fasting)) mg/dl Calcium 8.8 (8.6-10.3) mg/dl AST (13-39) U/L ALT (7-52) U/L Alkaline Phosphatase (34-104) U/L Total Protein (6.0-8.3) gm/dl Albumin (3.4-5.0) gm/dl Intake and Output 06/25/25 06/26/25 06/26/25 22:59 06:59 14:59 Intake Total 933.717 / 2576.134 442.417 / 2576.134 Balance 933.717 / 2576.134 442.417 / 2576.134 Intake: IV 733.717 / 2226.134 292.417 / 2226.134 Heparin 62546 Unit/500 ml D5w 223.717 / 516.134 292.417 / 516.134 25,000 units In 500 ml @ 1,450 UNITS/HR 29 mls/hr IV .[id number] [facility] Rx#:[id number] Potassium Phosphate 30 mmol In 510 / 510 Sodium Chloride 0.9% 500 ml @ 88 mls/hr IV ONE ONE Rx#: [id number] Oral 200 / 350 150 / 350 Other: Weight 95.3 kg 95.4 kg Weight Measurement Method Built in [facility] Diagnostic Findings Initial EKG in the ER revealed atrial fibrillation with a rapid ventricular re sponse (161 bpm) with possible prior inferior infarct and lateral upsloping ST depression. A second EKG in the ER revealed atrial fibrillation with a ventricular rate of 120 bpm with possible old inferior infarct, poor R wave progression, anterolateral STT wave changes suggestive of ischemia. EKG this morning is technically limited, revealing sinus bradycardia 54 bpm with marked anterolateral and inferior STT wave changes suggestive of ischemia. Resting echocardiography, as interpreted by Dr. Turcios, reveals mild to moderate reduction in LV systolic function, EF 40 to 45%, with apical akinesis, mid anteroseptal, anteroapical, and apical septal wall akinesis. Apical echoes consistent with trabeculae; cannot rule out associated thrombi. Mild tricuspid regurgitation noted along with grade 1 diastolic dysfunction. Telemetry: Currently sinus bradycardia at 56 bpm. Initial rhythm on the floor was atrial fibrillation, converting to sinus at 11:56:46 without conversion pause. Occasional premature ventricular complexes noted along with a few short runs of VT up to 5 beats in duration. Admission chest x-ray: No active disease Medications Administered Home Medications Medication Instructions Recorded Confirmed Last Taken No Known Home Medications 06/25/25 06/25/25 Unknown Active Medications Generic Name Dose Route Start Last Admin Trade Name Freq PRN Reason Stop Dose Admin Aspirin 81 mg 06/26/25 09:00 06/26/25 09:01 Aspirin 81 Mg Ectab PO 07/26/25 08:59 81 mg QAM SHINE Administration Atorvastatin Calcium 80 mg 06/25/25 16:00 06/26/25 09:02 Atorvastatin 40 Mg Tab PO 07/25/25 15:59 80 mg QAM SHINE Administration Ergocalciferol 1,250 mcg 06/26/25 13:45 06/26/25 14:25 Ergocalciferol 1250 Mcg (50,000 Units) Cap PO 07/26/25 13:44 1,250 mcg Q7D@0900 SHINE Administration Heparin Sodium/Dextrose 25,000 units in 500 mls @ 29 mls/hr 06/25/25 12:45 06/26/25 06:55 Heparin 81782 Unit/500 Ml D5w IV 07/25/25 12:44 1,450 units/hr .[id number] SHINE 29 mls/hr Titration Protocol 1,450 UNITS/HR Metoprolol Succinate 25 mg 06/25/25 16:00 06/26/25 09:02 Metoprolol Succ 25mg Ext Rel Tab PO 07/25/25 15:59 25 mg BID SHINE Administration PG Care Time/CCT Total # of Minutes Spent Total Time Spent with Patient: Total time spent is greater than 50% in coordination of care (as documented) at patient's floor/unit and/or counseling patient. I spent a total of 80 minutes on the date of service in preparation, delivery, and documentation of the care provided to this patient excluding any time spent in the performance of separately billed services. This visit was a split-shared visit with the substantive portion of the medical decision making performed by the supervising employee relations advisor/billing provider, Dr. Turcios Coding Level of Care Code 15506 IN/OBS CONSULT LVL 5,80M Diagnoses Non-ST elevation MO (NSTEMI) I21.4 New onset a-fib I48.91 Chest pain R07.9 Syncope R55 HTN, goal below 130/80 I10
[2025-06-26 11:26] LABS: Anion Gap 4.0 (3-11); Blood Urea Nitrogen 15.0 mg/dl (6-23); Calcium 8.9 mg/dl (8.6-10.3); Carbon Dioxide 25.0 mmol/L (21-32); Chloride 108.0 mmol/L (98-107); Creatinine Clr Calc Pharmacy 124.8 ml/min; Glucose 101.0 mg/dl (70-99(Fasting)); Potassium 4.4 mmol/L (3.5-5.1); Sodium 137.0 mmol/L (136-145)
--- NOTE | 2025-06-26 12:04 | Electrocardiogram Report ---
Test Reason : Blood Pressure : */* mmHG Vent. Rate : 54 BPM Atrial Rate : 54 BPM P-R Int : 148 ms QRS Dur : 84 ms QT Int : 506 ms P-R-T Axes : 51 5 -21 degrees QTcB Int : 479 ms Sinus bradycardia Abnormal ECG When compared with ECG of 25-Jun-2025 12:01, (unconfirmed) Criteria for Anterior infarct are no longer Present Criteria for Inferior infarct are no longer Present Confirmed by Beni Edward ([id number]) on 06/26/2025 12:04:08 PM Referred By: REFERRED SELF Confirmed By: Beni Edward
--- NOTE | 2025-06-26 13:16 | Hospitalist Progress Note ---
Date of Service June 26, 2025 Assessment & Plan (1) Atrial fibrillation with RVR: (2) Chest pain: (3) Hypophosphatemia: (4) Non-ST elevation [place] (NSTEMI): Plan This is a 50 y/o male with no cardiac history who presented to the ED today with acute onset of chest pain radiating to left arm and left jaw and a probable syncopal event at home (unwitnessed). Work-up in the ED revealed atrial fibrillation with RVR on presention, initial rate in the 160s. Initial troponin was 538.6, repeat troponin was 416.5. Pt was given diltiazem 15 mg IV then 25 mg IV in the ED, converted to NSR with current rate in the 70s. Phosphorus found to be markedly low at <1.0 - repletion both IV and oral has been started. Pt referred for admission for further evaluation and management. NSTEMI Presented with chest pain and noted to have anterolateral and inferior ST-T wave abnormality Associated increasing elevation of troponin Echo of the heart showed LV systolic function mild to moderately reduced with EF 40 to 45%, apical akinesis, mild anteroseptal, anterior and apical and apical septal wall akinesis, atypical echoes consistent with trabeculae are noted cannot rule out associated thrombi, there is mild tricuspid regurgitations and grade 1 diastolic dysfunction Received 324 mg atropine in the ED and continued on 81 mg and statin was added Hemoglobin A1c is 4.8 and lipid profiles unremarkable Appreciate cardiology input and recommendation He remains free from any symptoms and will have cardiac cath likely tomorrow #Atrial fibrillation with RVR - likely related to electrolyte abnormality noted in the ED - Heparin drip, standard drip with bolus for now - will discuss need for future anticoagulation with cardiology pending clinical course. - Start metoprolol succinate 25 mg BID, has converted to NSR in the ED Rate is controlled with current medications and will observe #Hypophosphatemia - unclear etiology - Repletion started in the ED - will recheck BMP and phos Q6 hrs starting at 5 pm today - Consult nephrology for assistance for work-up and management - Check vitamin D levels, parathyroid hormone, CK-vitamin D is in low, parathormone is elevated and CK level has been normal Hospital level has been normalized Will get 50,000 of vitamin D weekly for 6 weeks and then daily requirements Code status: full code DVT prophylaxis: on heparin gtt Admission and Anticipated Discharge Date Admission Date: June 25, 2025 Subjective 06/26/2025 The patient was seen and examined in telemetry unit He was admitted with chest pain and that has been controlled with current medications Seems to have a non-ST elevation [place] but remains asymptomatic Will have cardiac cath tomorrow Review of Systems Review of Systems: All systems reviewed and are unremarkable except as noted below Physical Exam Physical Exam: Lying in bed without any acute distress Constitutional: well developed, well nourished and average body habitus; not ill appearing Eyes: PERRL, conjunctivae normal, anicteric sclerae ENMT: external ear and nose normal, oropharynx normal Neck: trachea midline, no thyromegaly Respiratory: no respiratory distress Auscultation: lungs clear to auscultation bilaterally Cardiovascular: Rate/Rhythm: regular rate and regular rhythm; not tachycardic Heart Sounds: normal S1 and normal S2; no murmur Extremities: no edema Gastrointestinal (Abdomen): Inspection/Auscultation: normal bowel sounds; abdomen not distended Percussion/Palpation: abdomen soft; abdomen nontender Musculoskeletal: No acute arthritis involving any of the joint Neurologic: normal touch/pain/proprioception and moves all extremities; no focal motor deficits Psychiatric: A+Ox3, euthymic affect Lymphatic: no cervical or axillary lymphadenopathy Results & Data Results & Data Vital Signs (Past 12 Hours) Vital Signs Temp Pulse Resp BP Pulse Ox O2 Del Method 06/26/25 11:01 36.6 C 54 L 18 119/69 97 Room Air 06/26/25 07:31 36.5 C 53 L 18 139/84 98 Room Air 06/26/25 03:15 36.5 C 47 L 18 119/76 98 Room Air Laboratory Results Short CBC 06/26/25 Range/Units 03:18 WBC 8.37 (4.8-10.8) K/ul Hgb 15.5 (14.0-18.0) g/dl Hct 45.3 (42.0-52.0) % Plt Count 144 (130-400) K/uL [facility] 06/25/25 06/25/25 06/26/25 16:50 22:42 03:18 Sodium 139 138 137 Potassium 4.2 4.0 4.1 Chloride 108 H 108 H 109 H Carbon Dioxide 23 23 24 BUN 11 15 14 Creatinine 0.72 D 0.77 0.83 Glucose 96 106 H 104 H Calcium 8.7 8.6 8.8 06/26/25 10:55 Sodium 137 Potassium 4.4 Chloride 108 H Carbon Dioxide 25 BUN 15 Creatinine 0.83 Glucose 101 H Calcium 8.9 Cognition Medications Administered Current Inpatient Medications Acetaminophen (Acetaminophen 325 Mg Tab) 650 mg PO Q4H PRN PRN Reason: Pain or Fever Stop: 07/25/25 16:50 Aspirin (Aspirin 81 Mg Ectab) [address] [facility] Stop: 07/26/25 08:59 Last Admin: 06/26/25 09:01 Dose: 81 mg Atorvastatin Calcium (Atorvastatin 40 Mg Tab) [address] [facility] Stop: 07/25/25 15:59 Last Admin: 06/26/25 09:02 Dose: 80 mg Heparin Sodium/Dextrose (Heparin 14997 Unit/500 Ml D5w) 25,000 units in 500 mls @ 29 mls/hr IV .[id number] [facility]; Protocol Stop: 07/25/25 12:44 Last Titration: 06/26/25 06:55 Dose: 1,450 units/hr, 29 mls/hr Metoprolol Succinate (Metoprolol Succ 25mg Ext Rel Tab) 25 mg PO BID [facility] Stop: 07/25/25 15:59 Last Admin: 06/26/25 09:02 Dose: 25 mg (2) Chest pain Chest pain type: unspecified Qualified Code(s): R07.9 - Chest pain, unspecified
[2025-06-26] MEDS: ERGOCALCIFEROL 1250 MCG (50,000 UNITS) CAP PO SCH (14:25)
--- NOTE | 2025-06-26 19:45 | Nephrology Consultation ---
Date of Consultation June 26, 2025 Assessment & Plan (1) Hypophosphatemia: Patrice 2/ hyperparathyroidism, his 25 OH levels are low Start on high dose VD,50,000u weekly , recheck PTH, Phos with 25 OH vd( aim for levels between 30-40), If PTH levels are still high he will needs CT neck to look for Adenoma. Unlikely tubular defect,Fe phsphorus should have been done when he had hypophosphatemia, he has had phosphorus infusion,results will be difficult to interpret if it is done now. This can be done if the phosphorus level decrease again. (2) Non-ST elevation [place] (NSTEMI): He is n heparin drip, Cardiology planning further work up (3) Atrial fibrillation with rapid ventricular response: History of Present Illness Reason for Consultation: Hypophospatemia Attending Physician: Sheldon Pak MD History of Present Illness This is a 50 y/o male with no knowm medical problems and not on any medication presented to the ED with acute onset of chest pain radiating to left arm and left jaw and a probable syncopal event at home (unwitnessed). Work-up in the ED revealed atrial fibrillation with RVR on presention, initial rate in the 160s with raised troponin of 538.6( repeat troponin was 416.5) Pt was given diltiazem 15 mg IV then 25 mg IV in the ED, converted to NSR with controlled . ER labs was significant for Phosphorus of <1.0 which was repleted IV. Pt referred for TO Nephrology for hypophosphatemia.On exam he was comfortable w/ no chest pain/ palpitation/ or Shortness of breath, He was on Heparin drip for NSTEMI and is due for Cardiac work up He denies any issues w/ electrolytes in the past. He has not been on medication, Ck has been normal.PTH is raised at 104.3, w/ normal calcium and low 25 OH (24.3), Renal function are normal and phosphorus has remained normal . Allergies Allergy/AdvReac Type Severity Reaction Status Date / Time No Known Allergies Allergy Mild Unverified 04/19/08 08:35 Home Medications Medication Instructions Recorded Confirmed Type No Known Home Medications 06/25/25 06/25/25 History Patient History Medical History Sciatica Surgical History No pertinent past surgical history Family History Father Myocardial infarction Brother Multiple sclerosis Social History Smoking Status: Never smoker Second Hand Exposure: No; Do You Dip or Chew Tobacco: No; Hx Alcohol Use: No Hx Substance Use: No Preferred Language: Kazakh Communication Ability: Effective Roving Sizer Required: No Beliefs That Will Affect Care: None Current Living Situation: Family and Significant Other Current Living Situation Comment: with family current occupational status: employed Other Information That Helps Us Care for You: No Feels Safe at Home: Yes Safety Concerns: Feels Safe At This Time Assistive Devices: Glasses Review of Systems 2 Review of Systems: All systems reviewed & are unremarkable except as noted in HPI & below Physical Exam 2 Physical Exam: General: A&Ox3. NAD. HENT: Normocephalic. Atraumatic. Eyes: PER. Conjunctiva pink, sclera clear. Neck: No carotid bruits. No JVD. No HJR. Heart: RRR, 56 bpm. No murmur. No rub. No gallop. PMI is nondisplaced. Lungs: Clear to auscultation. Abdomen: +BS. Soft. Nontender. No masses or organomegaly. Extremities: No clubbing, cyanosis, or edema. Results & Data Vital Signs (Past 12 Hours) Vital Signs Temp Pulse Pulse Resp BP Pulse Ox O2 Del Method 06/26/25 15:49 36.6 C 65 18 127/73 96 Room Air 06/26/25 15:30 36.7 C 53 L 18 127/74 97 Room Air 06/26/25 15:00 117 H 06/26/25 15:00 54 L 06/26/25 11:01 36.6 C 54 L 18 119/69 97 Room Air Laboratory Results 06/26/25 03:18 06/26/25 10:55
[2025-06-27 05:10] LABS: Hematocrit (blood only) 44.2 % (42.0-52.0); Hemoglobin 15.3 g/dl (14.0-18.0); Immature Granulocytes # (auto) 0.01 K/uL (0.01-0.20); Immature Granulocytes % (auto) 0.2 %; Mean Corpuscular Hemoglobin 31.7 pg (25.0-34.0); Mean Corpuscular Volume 91.7 fL (80.0-100.0); Platelet Count 145 K/uL (130-400); RDW Standard Deviation 39.8 fL (36.4-46.3); Red Blood Count 4.82 M/uL (4.70-6.10); White Blood Count 6.02 K/ul (4.8-10.8)
[2025-06-27 05:27] LABS: Anion Gap 6.0 (3-11); Blood Urea Nitrogen 14.0 mg/dl (6-23); Calcium 8.9 mg/dl (8.6-10.3); Carbon Dioxide 25.0 mmol/L (21-32); Chloride 107.0 mmol/L (98-107); Creatinine Clr Calc Pharmacy 124.8 ml/min; Glucose 94.0 mg/dl (70-99(Fasting)); Magnesium 2.0 mg/dl (1.7-2.4); Potassium 4.2 mmol/L (3.5-5.1); Sodium 138.0 mmol/L (136-145)
[2025-06-27 05:36] LABS: ANTI-Xa, UFH(UnfractionatedHep 0.59 IU/ml (0.3-0.7)
--- NOTE | 2025-06-27 10:02 | Cardiology Progress Note ---
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 HEENT: Glasses. Recurrent strep throat. No history of amaurosis fugax. No cataracts, macular degeneration, or glaucoma. Pulmonary: No history of asthma, emphysema, COPD, or sleep apnea. No history of PE. Cardiac: See above. GI/Abd: No dysphagia. No GERD. No melana or hematochezia. No kidney problems. No liver problems. No history of pancreatic issues. Vascular: No history of carotid artery disease, AAA, or lower extremity claudication/PAD. Hematologic: No coagulation disorder, anemia, or abnormal bleeding. Musculoskeletal: Sciatica Skin: No rash. No tick bites Neurologic: No history of TIA/CVA, or seizure disorder. Male : No hematuria Endocrine: No history of diabetes mellitus. No thyroid trouble. Complete Review of Systems is as stated above, negative, or noncontributory Physical Exam Physical Exam: General: A&Ox3. NAD. HENT: Normocephalic. Atraumatic. Eyes: PER. Conjunctiva pink, sclera clear. Neck: No carotid bruits. No JVD. No HJR. Heart: RRR, 56 bpm. No murmur. No rub. No gallop. PMI is nondisplaced. Lungs: Clear to auscultation. Abdomen: +BS. Soft. Nontender. No masses or organomegaly. Extremities: No clubbing, cyanosis, or edema. Limited neurological examination is without focal deficits. Results & Data Vital Signs (Past 12 Hours) Vital Signs Temp Pulse Resp BP Pulse Ox O2 Del Method 06/27/25 07:06 36.5 C 52 L 20 157/80 H 98 Room Air 06/27/25 03:59 36.5 C 53 L 14 137/79 99 Room Air 06/26/25 23:20 36.8 C 48 L 16 112/68 95 Room Air Laboratory Results Cardiac Enzymes 06/26/25 06/26/25 Range/Units 12:15 16:54 Troponin I High Sens 952.2 H* D 682.8 H* D (0-20) pg/ml CBC 06/27/25 Range/Units 04:52 WBC 6.02 (4.8-10.8) K/ul RBC 4.82 (4.70-6.10) M/uL Hgb 15.3 (14.0-18.0) g/dl Hct 44.2 (42.0-52.0) % Plt Count 145 (130-400) K/uL Neut # (Auto) 3.51 (1.40-6.50) K/uL Lymph # (Auto) 1.70 (1.20-3.40) K/uL Cobb # (Auto) 0.65 H (0.11-0.59) K/uL Eos # (Auto) 0.11 (0.00-0.50) K/uL Baso # (Auto) 0.04 (0.00-0.20) K/uL Comprehensive Metabolic Panel 06/26/25 06/27/25 Range/Units 10:55 04:52 Sodium 137 138 (136-145) mmol/L Potassium 4.4 4.2 (3.5-5.1) mmol/L Chloride 108 H 107 (98-107) mmol/L Carbon Dioxide 25 25 (21-32) mmol/L BUN 15 14 (6-23) mg/dl Creatinine 0.83 0.83 (0.6-1.4) mg/dl Glucose 101 H 94 (70-99(Fasting)) mg/dl Calcium 8.9 8.9 (8.6-10.3) mg/dl Intake and Output 06/26/25 06/27/25 06/27/25 22:59 06:59 14:59 Intake Total 432.583 / 1296.000 363.417 / 1296.000 Balance 432.583 / 1296.000 363.417 / 1296.000 Intake: IV 432.583 / 696.000 263.417 / 696.000 Heparin 53418 Unit/500 ml D5w 432.583 / 696.000 263.417 / 696.000 25,000 units In 500 ml @ 1,450 UNITS/HR 29 mls/hr IV .[id number] [facility] Rx#:[id number] Oral 100 / 600 Other: # Unmeasured Voids 2 Weight 94.2 kg Weight Measurement Method Built in [facility] Diagnostic Findings Laboratory Results WBC 6.02 K/ul (4.8-10.8) 06/27/25 04:52 RBC 4.82 M/uL (4.70-6.10) 06/27/25 04:52 Hgb 15.3 g/dl (14.0-18.0) 06/27/25 04:52 Hct 44.2 % (42.0-52.0) 06/27/25 04:52 MCV 91.7 fL (80.0-100.0) 06/27/25 04:52 MCH 31.7 pg (25.0-34.0) 06/27/25 04:52 MCHC 34.6 g/dL (32.0-36.0) 06/27/25 04:52 RDW Std Deviation 39.8 fL (36.4-46.3) 06/27/25 04:52 RDW Coeff of Leonidas 11.9 % (11.5-14.5) 06/27/25 04:52 Plt Count 145 K/uL (130-400) 06/27/25 04:52 MPV 12.1 fL (9.4-12.4) 06/27/25 04:52 Immature Gran % (Auto) 0.2 % 06/27/25 04:52 Neut % (Auto) 58.3 % 06/27/25 04:52 Lymph % (Auto) 28.2 % 06/27/25 04:52 Cobb % (Auto) 10.8 % 06/27/25 04:52 Eos % (Auto) 1.8 % 06/27/25 04:52 Baso % (Auto) 0.7 % 06/27/25 04:52 Neut # (Auto) 3.51 K/uL (1.40-6.50) 06/27/25 04:52 Lymph # (Auto) 1.70 K/uL (1.20-3.40) 06/27/25 04:52 Cobb # (Auto) 0.65 K/uL (0.11-0.59) H 06/27/25 04:52 Eos # (Auto) 0.11 K/uL (0.00-0.50) 06/27/25 04:52 Baso # (Auto) 0.04 K/uL (0.00-0.20) 06/27/25 04:52 Immature Gran # (Auto) 0.01 K/uL (0.01-0.20) 06/27/25 04:52 PT 10.9 Seconds (9.0-12.0) 06/25/25 09:24 INR 1.0 (0.9-1.1) 06/25/25 09:24 APTT 27 Seconds (21-31) 06/25/25 09:24 PTT Ratio 1.0 06/25/25 09:24 Heparin Anti-Xa, Unfract 0.59 IU/ml (0.3-0.7) 06/27/25 04:52 Sodium 138 mmol/L (136-145) 06/27/25 04:52 Potassium 4.2 mmol/L (3.5-5.1) 06/27/25 04:52 Chloride 107 mmol/L (98-107) 06/27/25 04:52 Carbon Dioxide 25 mmol/L (21-32) 06/27/25 04:52 Anion Gap 6 (3-11) 06/27/25 04:52 BUN 14 mg/dl (6-23) 06/27/25 04:52 Creatinine 0.83 mg/dl (0.6-1.4) 06/27/25 04:52 Est Cr Clr Drug Dosing 124.8 ml/min 06/27/25 04:52 eGFR 105.31 06/27/25 04:52 BUN/Creatinine Ratio 16.9 (10-20) 06/27/25 04:52 Glucose 94 mg/dl (70-99(Fasting)) 06/27/25 04:52 Estimat Average Glucose 91 mg/dl 06/26/25 03:18 Hemoglobin A1c 4.8 % (4.5-5.6) 06/26/25 03:18 Calcium 8.9 mg/dl (8.6-10.3) 06/27/25 04:52 Phosphorus 3.0 mg/dl (2.5-4.9) 06/27/25 04:52 Magnesium 2.0 mg/dl (1.7-2.4) 06/27/25 04:52 Total Bilirubin 1.4 mg/dl (0.2-1.0) H 06/25/25 09:24 AST 25 U/L (13-39) 06/25/25 09:24 ALT 24 U/L (7-52) 06/25/25 09:24 Alkaline Phosphatase 62 U/L (34-104) 06/25/25 09:24 Total Creatine Kinase 87 U/L (30-223) 06/25/25 11:12 Troponin I High Sens 682.8 pg/ml (0-20) H* D 06/26/25 16:54 Total Protein 8.3 gm/dl (6.0-8.3) 06/25/25 09:24 Albumin 4.7 gm/dl (3.4-5.0) 06/25/25 09:24 Globulin 3.6 gm/dl (2.5-4.0) 06/25/25 09:24 Albumin/Globulin Ratio 1.3 (0.9-2) 06/25/25 09:24 Triglycerides 84 mg/dl (0-150) 06/26/25 03:18 Cholesterol 119 mg/dl (0-200) 06/26/25 03:18 LDL Cholesterol, Calc 67 mg/dl 06/26/25 03:18 VLDL Cholesterol, Calc 17 mg/dl (0-30) 06/26/25 03:18 HDL Cholesterol 35 mg/dl 06/26/25 03:18 Cholesterol/HDL Ratio 3.4 (0-5) 06/26/25 03:18 Lipase 26 U/L (11-82) 06/25/25 09:24 25-OH Vitamin D Total 24.3 ng/ml (30-100) L 06/25/25 09:24 TSH 1.257 uIu/ml (0.300-4.500) 06/25/25 09:24 PTH Intact 104.3 pg/ml (12.0-88.0) H 06/25/25 13:23 Impressions Chest X-Ray 06/25/25 09:21 Clinical History: Chest pain Technique: A frontal view of the chest was obtained Findings: There are no confluent pulmonary infiltrates. The heart size is at the upper limit of normal. No pleural effusion or pneumothorax is seen. There is no definite pulmonary nodule. No fracture is noted. No foreign body is seen Impression: No active disease Electronically signed by Negro Beckman 06-25-2025 09:45 AM 06/25/25 ECHOCARDIOGRAM Interpretation Summary Left ventricular systolic function is mild to moderately reduced. Left Ventricular Ejection Fraction = 40-45%. There is apical akinesis. Mid anteroseptum, anterior apical and apical septum wall akinesis. Apical echoes consistent with trabeculae are noted. Cannot rule out associated thrombi. There is mild tricuspid regurgitation. Grade I diastolic dysfunction, (abnormal relaxation pattern). Medications Administered Home Medications Medication Instructions Recorded Confirmed Last Taken No Known Home Medications 06/25/25 06/25/25 Unknown Active Medications Generic Name Dose Route Start Last Admin Trade Name Freq PRN Reason Stop Dose Admin Aspirin 81 mg 06/26/25 09:00 06/27/25 08:18 Aspirin 81 Mg Ectab PO 07/26/25 08:59 81 mg QAM [facility] Administration Atorvastatin Calcium 80 mg 06/25/25 16:00 06/27/25 08:18 Atorvastatin 40 Mg Tab PO 07/25/25 15:59 80 mg QAM [facility] Administration Ergocalciferol 1,250 mcg 06/26/25 13:45 06/26/25 14:25 Ergocalciferol 1250 Mcg (50,000 Units) Cap PO 07/26/25 13:44 1,250 mcg Q7D@0900 [facility] Administration Heparin Sodium/Dextrose 25,000 units in 500 mls @ 29 mls/hr 06/25/25 12:45 06:55 Heparin 15883 Unit/500 Ml D5w IV 07/25/25 12:44 1,450 units/hr .[id number] [facility] 29 mls/hr Titration Protocol 1,450 UNITS/HR Metoprolol Succinate 25 mg 06/25/25 16:00 06/27/25 08:18 Metoprolol Succ 25mg Ext Rel Tab PO 07/25/25 15:59 25 mg BID [facility] Administration PG Care Time/CCT Total # of Minutes Spent Total Time Spent with Patient: Total time spent is greater than 50% in coordination of care (as documented) at patient's floor/unit and/or counseling patient: Coding Level of Care Code 63058 SUB INP/OBS CARE 3/50MIN Diagnoses Non-ST elevation [place] (NSTEMI) I21.4 New onset a-fib I48.91 Chest pain R07.9 Syncope R55 HTN, goal below 130/80 I10
--- NOTE | 2025-06-27 16:11 | Hospitalist Progress Note ---
Date of Service June 27, 2025 Assessment & Plan (1) Atrial fibrillation with RVR: (2) Chest pain: (3) Hypophosphatemia: (4) Non-ST elevation [place] (NSTEMI): Plan This is a 50 y/o male with no cardiac history who presented to the ED today with acute onset of chest pain radiating to left arm and left jaw and a probable syncopal event at home (unwitnessed). Work-up in the ED revealed atrial fibrillation with RVR on presention, initial rate in the 160s. Initial troponin was 538.6, repeat troponin was 416.5. Pt was given diltiazem 15 mg IV then 25 mg IV in the ED, converted to NSR with current rate in the 70s. Phosphorus found to be markedly low at <1.0 - repletion both IV and oral has been started. Pt referred for admission for further evaluation and management. NSTEMI Presented with chest pain and noted to have anterolateral and inferior ST-T wave abnormality Associated increasing elevation of troponin Echo of the heart showed LV systolic function mild to moderately reduced with EF 40 to 45%, apical akinesis, mild anteroseptal, anterior and apical and apical s eptal wall akinesis, atypical echoes consistent with trabeculae are noted cannot rule out associated thrombi, there is mild tricuspid regurgitations and grade 1 diastolic dysfunction Received 324 mg atropine in the ED and continued on 81 mg and statin was added Hemoglobin A1c is 4.8 and lipid profiles unremarkable Appreciate cardiology input and recommendation Remains asymptomatic and hemodynamically stable Will have cardiac cath tomorrow #Atrial fibrillation with RVR - likely related to electrolyte abnormality noted in the ED - Heparin drip, standard drip with bolus for now - will discuss need for future anticoagulation with cardiology pending clinical course. - Start metoprolol succinate 25 mg BID, has converted to NSR in the ED Rate is controlled with current medications and will observe Rate is controlled at 54/min #Hypophosphatemia - unclear etiology - Repletion started in the ED - will recheck BMP and phos Q6 hrs starting at 5 pm today - Consult nephrology for assistance for work-up and management - Check vitamin D levels, parathyroid hormone, CK-vitamin D is in low, parathormone is elevated and CK level has been normal Hospital level has been normalized Will get 50,000 of vitamin D weekly for 6 weeks and then daily requirements Phosphate level remains normal Code status: full code DVT prophylaxis: on heparin gtt Admission and Anticipated Discharge Date Admission Date: June 25, 2025 Subjective 06/26/2025 The patient was seen and examined in telemetry unit He was admitted with chest pain and that has been controlled with current medications Seems to have a non-ST elevation [place] but remains asymptomatic Will have cardiac cath tomorrow 06/27/2025 The patient was seen and examined in telemetry unit He remains stable without any chest pain and/or palpitation Awaiting cardiac cath tomorrow Review of Systems Review of Systems: All systems reviewed and are unremarkable except as noted below Physical Exam Physical Exam: Lying in bed without any acute distress Constitutional: well developed, well nourished and average body habitus; not ill appearing Eyes: PERRL, conjunctivae normal, anicteric sclerae ENMT: external ear and nose normal, oropharynx normal Neck: trachea midline, no thyromegaly Respiratory: no respiratory distress Auscultation: lungs clear to auscultation bilaterally Cardiovascular: Rate/Rhythm: regular rate and regular rhythm; not tachycardic Heart Sounds: normal S1 and normal S2; no murmur Extremities: no edema Gastrointestinal (Abdomen): Inspection/Auscultation: normal bowel sounds; abdomen not distended Percussion/Palpation: abdomen soft; abdomen nontender Neurologic: normal touch/pain/proprioception and moves all extremities; no focal motor deficits Psychiatric: A+Ox3, euthymic affect Lymphatic: no cervical or axillary lymphadenopathy Results & Data Results & Data Vital Signs (Past 12 Hours) Vital Signs Temp Pulse Pulse Resp BP Pulse Ox O2 Del Method 06/27/25 15:39 36.7 C 54 L 21 131/79 97 Room Air 06/27/25 14:00 56 L 06/27/25 10:55 36.8 C 56 L 20 153/85 H 99 Room Air 06/27/25 07:15 47 L 06/27/25 07:06 36.5 C 52 L 20 157/80 H 98 Room Air Laboratory Results Short CBC 06/27/25 Range/Units 04:52 WBC 6.02 (4.8-10.8) K/ul Hgb 15.3 (14.0-18.0) g/dl Hct 44.2 (42.0-52.0) % Plt Count 145 (130-400) K/uL [facility] 06/27/25 04:52 Sodium 138 Potassium 4.2 Chloride 107 Carbon Dioxide 25 BUN 14 Creatinine 0.83 Glucose 94 Calcium 8.9 Medications Administered Current Inpatient Medications Acetaminophen (Acetaminophen 325 Mg Tab) 650 mg PO Q4H PRN PRN Reason: Pain or Fever Stop: 07/25/25 16:50 Aspirin (Aspirin 81 Mg Ectab) 81 mg PO [facility] Stop: 07/26/25 08:59 Last Admin: 06/27/25 08:18 Dose: 81 mg Atorvastatin Calcium (Atorvastatin 40 Mg Tab) 80 mg PO [facility] Stop: 07/25/25 15:59 Last Admin: 06/27/25 08:18 Dose: 80 mg Ergocalciferol (Ergocalciferol 1250 Mcg (50,000 Units) Cap) 1,250 mcg PO Q7D@0900 [facility] Stop: 07/26/25 13:44 Last Admin: 06/26/25 14:25 Dose: 1,250 mcg Heparin Sodium/Dextrose (Heparin 33300 Unit/500 Ml D5w) 25,000 units in 500 mls @ 29 mls/hr IV .[id number] [facility]; Protocol Stop: 07/25/25 12:44 Last Admin: 06/27/25 15:50 Dose: 1,450 units/hr, 29 mls/hr Lisinopril (Lisinopril 5 Mg Tab) 5 mg PO [facility] Stop: 07/27/25 10:14 Last Admin: 06/27/25 10:58 Dose: 5 mg Metoprolol Succinate (Metoprolol Succ 25mg Ext Rel Tab) 25 mg PO BID [facility] Stop: 07/25/25 15:59 Last Admin: 06/27/25 08:18 Dose: 25 mg (2) Chest pain Chest pain type: unspecified Qualified Code(s): R07.9 - Chest pain, unspecified
[2025-06-28 04:01] LABS: Hematocrit (blood only) 49.8 % (42.0-52.0); Hemoglobin 17.3 g/dl (14.0-18.0); Immature Granulocytes # (auto) 0.02 K/uL (0.01-0.20); Immature Granulocytes % (auto) 0.2 %; Mean Corpuscular Hemoglobin 31.2 pg (25.0-34.0); Mean Corpuscular Volume 89.7 fL (80.0-100.0); Platelet Count 177 K/uL (130-400); RDW Standard Deviation 38.5 fL (36.4-46.3); Red Blood Count 5.55 M/uL (4.70-6.10); White Blood Count 9.08 K/ul (4.8-10.8)
[2025-06-28] MEDS: SODIUM CHLORIDE 0.9% 500 ML IV ONE (04:08)
[2025-06-28 04:20] LABS: Anion Gap 12.0 (3-11); Blood Urea Nitrogen 16.0 mg/dl (6-23); Calcium 9.6 mg/dl (8.6-10.3); Carbon Dioxide 20.0 mmol/L (21-32); Chloride 106.0 mmol/L (98-107); Creatinine Clr Calc Pharmacy 85.4 ml/min; Glucose 119.0 mg/dl (70-99(Fasting)); Magnesium 2.0 mg/dl (1.7-2.4); Potassium 4.0 mmol/L (3.5-5.1); Sodium 138.0 mmol/L (136-145)
[2025-06-28] MEDS ORDERED: SODIUM PHOSPHATE 3 MMOL/1 ML INFUSION IV STA (04:31)
[2025-06-28 04:32] LABS: ANTI-Xa, UFH(UnfractionatedHep 0.57 IU/ml (0.3-0.7)
[2025-06-28] MEDS: SODIUM PHOSPHATE 24 MMOL in SODIUM CHLORIDE 0.9% 500 ML IV ONE (05:09)
--- NOTE | 2025-06-28 07:41 | Communication Note ---
Date of Service: June 28, 2025 Around 3:30am today code neelima was called .Seems patient became diaphoretic and almost passed out and his SBP in 50's. Was started on Fluid bolus. Quickly BP improved. Patient complained of numbness in hands and was having mild tremors. Was very anxious that he may get severe chest pain as it happened before with similar episode. Heart rates in 100-110's a fib. ekg showed a fib. Then patient completely became awake and vitals were stable. He was still somewhat shaky and worried it may happen again.Intially compleined of some dull achy chest pain attributing to muscular pain but later said it got resolved. got 500cc fluid bolus. labs showed trop trending down. His metoprolol was earlier held for bradycardia and as currently heart rates elevated and SBP in 140's gave his po metoprolol. Also gave a dose of Valium 2mg. Will notify Am providers.
--- NOTE | 2025-06-28 09:05 | Cardiology Progress Note ---
Date of Service June 28, 2025 Assessment & Plan (1) Non-ST elevation [place] (NSTEMI): (2) New onset a-fib: (3) Syncope: (4) HTN, goal below 130/80: Plan Recurrent anginal symptoms and atrial fibrillation noted overnight. Recommend urgent cardiac catheterization this a.m. LAD territory ischemia suspected per review of echocardiogram. Risk, benefit, alternatives to cardiac catheterization discussed. Patient agreeable to proceed. Plan dual antiplatelet therapy with clopidogrel if PCI indicated due to need for anticoagulation with new onset atrial fibrillation. Continue beta-tyler, and statin. Hold lisinopril this a.m. in setting of borderline hypotension. Admission and Anticipated Discharge Date Admission Date: June 25, 2025 Subjective 50-year-old male seen and examined at the bedside. Admitted with new onset atrial fibrillation and NSTEMI. Developed recurrent atrial fibrillation overnight with rapid ventricular response. Currently chest pain-free. Review of Systems Review of Systems: All systems reviewed & are unremarkable except as noted in Subjective Physical Exam Constitutional: well nourished; no acute distress Respiratory: no respiratory distress, no labored breathing and no retractions Auscultation: no crackles, no rales, no rhonchi and no wheezes Cardiovascular: Rate/Rhythm: + irregularly irregular Heart Sounds: normal S1 and normal S2; no murmur Vessels: femoral pulses present and radial pulses present; no JVD and no carotid bruit Extremities: no edema Gastrointestinal (Abdomen): Inspection/Auscultation: abdomen normal to inspection and normal bowel sounds; abdomen not distended Percussion/Palpation: abdomen soft; abdomen nontender, no guarding and abdomen not rigid Neurologic: CN's II-XI intact bilaterally and moves all extremities Results & Data Vital Signs (Past 12 Hours) Vital Signs Temp Pulse Pulse Resp BP Pulse Ox O2 Del Method 06/28/25 08:45 106 H 18 113/88 95 Room Air 06/28/25 07:10 36.3 C L 78 20 115/73 98 Room Air 06/28/25 05:20 102 H 16 118/72 96 Room Air 06/28/25 03:35 106 H 22 141/95 H 98 Room Air 06/28/25 03:22 55/30 L 06/28/25 03:00 36.5 C 110 H 18 152/106 H 97 Room Air 06/28/25 00:30 122 H 16 121/74 97 Room Air 06/28/25 00:30 121 H 06/27/25 22:34 36.6 C 53 L 18 133/66 97 Room Air Laboratory Results Cardiac Enzymes 06/28/25 Range/Units 03:44 Troponin I High Sens 445.4 H* D (0-20) pg/ml CBC 06/28/25 Range/Units 03:42 WBC 9.08 (4.8-10.8) K/ul RBC 5.55 (4.70-6.10) M/uL Hgb 17.3 (14.0-18.0) g/dl Hct 49.8 (42.0-52.0) % Plt Count 177 (130-400) K/uL Neut # (Auto) 4.88 (1.40-6.50) K/uL Lymph # (Auto) 2.94 (1.20-3.40) K/uL [place] # (Auto) 1.07 H (0.11-0.59) K/uL Eos # (Auto) 0.11 (0.00-0.50) K/uL Baso # (Auto) 0.06 (0.00-0.20) K/uL Comprehensive Metabolic Panel 06/28/25 Range/Units 03:44 Sodium 138 (136-145) mmol/L Potassium 4.0 (3.5-5.1) mmol/L Chloride 106 (98-107) mmol/L Carbon Dioxide 20 L (21-32) mmol/L BUN 16 (6-23) mg/dl Creatinine 1.11 (0.6-1.4) mg/dl Glucose 119 H (70-99(Fasting)) mg/dl Calcium 9.6 (8.6-10.3) mg/dl Intake and Output 06/27/25 06/28/25 06/28/25 22:59 06:59 14:59 Intake Total 603.250 / 1684.000 840.750 / 1684.000 36.25 / 36.25 Output Total 650 / 650 Balance 603.250 / 1034.000 190.750 / 1034.000 36.25 / 36.25 Intake: IV 333.250 / 1174.000 840.750 / 1174.000 36.25 / 36.25 Heparin 60860 Unit/500 ml D5w 333.250 / 674.000 340.750 / 674.000 36.25 / 36.25 25,000 units In 500 ml @ 1,450 UNITS/HR 29 mls/hr IV .[id number] SHINE Rx#:[id number] Sodium Chloride 0.9% 500 ml @ 500 / 500 999 mls/hr IV .Q31M ONE Rx#: [id number] Oral 270 / 510 Output: Urine 650 / 650 Other: Other Intake Source NPO after midnight # Unmeasured Voids 1 Weight 92.8 kg Weight Measurement Method Built in [facility] PG Care Time/CCT Total # of Minutes Spent Total Time Spent with Patient: Total time spent is greater than 50% in coordination of care (as documented) at patient's floor/unit and/or counseling patient: Coding Level of Care Code 62537 SUB INP/OBS CARE 3/50MIN Diagnoses Non-ST elevation TN (NSTEMI) I21.4 New onset a-fib I48.91 Syncope R55 HTN, goal below 130/80 I10
--- NOTE | 2025-06-28 09:07 | Pre Anesthesia Assessment ---
Date of Service June 28, 2025 Pre Sedation Assessment Vital Signs Temp Pulse Pulse Resp BP Pulse Ox O2 Del Method 06/28/25 08:45 106 H 18 113/88 95 Room Air 06/28/25 07:10 36.3 C L 78 20 115/73 98 Room Air 06/28/25 05:20 102 H 16 118/72 96 Room Air 06/28/25 03:35 106 H 22 141/95 H 98 Room Air 06/28/25 03:22 55/30 L 06/28/25 03:00 36.5 C 110 H 18 152/106 H 97 Room Air 06/28/25 00:30 122 H 16 121/74 97 Room Air 06/28/25 00:30 121 H 06/27/25 22:34 36.6 C 53 L 18 133/66 97 Room Air 06/27/25 20:01 36.7 C 52 L 18 135/82 97 Room Air 06/27/25 15:39 36.7 C 54 L 21 131/79 97 Room Air 06/27/25 14:00 56 L 06/27/25 10:55 36.8 C 56 L 20 153/85 H 99 Room Air Cardiovascular + irregularly irregular + S1 normal and + S2 normal; no murmur + femoral pulses present and + radial pulses present; no JVD and no carotid bruit no edema Respiratory + respiratory effort normal; no respiratory distress, no labored breathing and no retractions no crackles, no rales, no rhonchi and no wheezes Pre-Sedation Airway Assessment Smoking Status: Never smoker Short, Thick Neck: No Thyromental Distance: < 3.5 Finger Breadths Oral Cavity: + WNL Mallampati Class: II ASA: ASA3 NPO Status Date of Last Intake of Fluids: 06/28/25 Time of Last Intake of Fluids: 00:00 Date of Last Intake of Solid Food: 06/28/25 Time of Last Intake of Solid Foods: 00:00 Procedure Planning Contraindications for Sedation: none Current Medications Reviewed: No Notes The planned sedation has been discussed with the patient. Informed Consent was obtained. I have identified the patient, determined the appropriateness of sedation and have assessed the patient immediately prior to the procedure. All medicine(s) and interventions are by my order.
--- NOTE | 2025-06-28 10:12 | Cardiac Catheterization ---
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 LVEF 40-45% CAD Presenation: Non STEMI STEMI OR Non-STEMI Symptom Onset Date: 06/26/25 Symptom Onset Time: 12:00 Thrombolytics: No Coronary Anatomy Dominant: Right Left Main (% Stenosis): Normal LAD (% Stenosis): Proximal (20%), Mid (95%) and Distal (Mild diffuse disease with stenosis up to 30%) D1 (% Stenosis): Ostial (50%) Circumflex (% Stenosis): Proximal (20%) and Mid (30%) OM1 (% Stenosis): Ostial (60%) RCA (% Stenosis): Proximal (Luminal irregularities, 20%), Mid (Luminal irregularities, 20%) and Distal (Luminal irregularities, 20%) R PDA (% Stenosis): Proximal (40%) and Distal (20%) R PL1 (% Stenosis): Normal (Small vessel) R PL2 (% Stenosis): Normal (Small vessel) Diagnostic Physicians Name: Kirk Ugalde DO Closure Device Percutaneous Entry Location: Radial Closure Device: Radial Band Recommendations: PCI without planned CABG (PCI LAD) Intraprocedure Events Significant Disection: No Perforation: No Cardiac Cath Procedure Full Procedure Date June 28, 2025 Pre-Procedure Diagnosis Pre-Procedure Diagnosis: Non STEMI and Cardiomyopathy (LVEF 40-45%) AUC Score AUC Score: 8 Post-Procedure Diagnosis Post-Procedure Diagnosis: Severe CAD Procedure(s) Performed Procedure(s) Performed: Coronary Angiography Lead Tinner Kirk Ugalde DO Plumbing Designer(s) Tony Rondon Estimated Blood Loss Estimated Blood Loss: 5cc Medication(s) Medication(s): Fentanyl, Heparin, Lidocaine 1%, Nicardipine, Nitroglycerin and Versed Summary of Findings 95% mid LAD 50% ostial D1 60% ostial OM1 40% proximal RPDA Hemodynamics Rest Ao:: 84/60/78 Final Ao: 83/38/76 LV: N/A Recommendations Recommendations: PCI without planned CABG (PCI LAD) Specimens Specimens: None Radiation Exposure (mGy) 750 Contrast (mls) 30 Fluids (cc crystalloids) Fluids (cc crystalloids): 250cc Nss bolus Drains Drains: N/A Anesthesia Moderate sedation. Start 09 33. End 10 AM. Sedation monitor:Harinder SHOOK Procedural Complication(s) None I attest to the content of the Intraoperative Record and any orders documented therein. Any exceptions are noted below. [facility] Card Cath Procedure Codes Cardiac Catheterization Procedure 1: Cardiovascular Cath Procedures: 31993 Coronaries Moderate Sedation Procedure 1: Sedation/Anesthesia: 64565 Mod Sedation by the same physician;Init15 Min Child Age 5 & Up Procedure 2: Sedation/Anesthesia: 10602 Mod Sedation by the same physician; Ea Add [email or web address] Minutes PG Care Time/CCT Total # of Minutes Spent Total Time Spent with Patient: Total time spent is greater than 50% in coordination of care (as documented) at patient's floor/unit and/or counseling patient:
[2025-06-28] MEDS: niCARdipine 2,000 MCG/20 ML SYR ONE (10:16)
[2025-06-28] MEDS: NITROGLYCERIN/D5W 100MCG/ML 20ML SYR ONE (10:17)
[2025-06-28] MEDS: MIDAZOLAM HCL 1 MG/ML 2ML VIAL ONE (10:29)
[2025-06-28] MEDS: OPTIRAY 350 ONE (10:30)
[2025-06-28] MEDS: HEPARIN (PORCINE) 1000 UNIT/ML 10 ML (CATH LAB USE ONLY) ONE (10:30)
[2025-06-28] MEDS: CLOPIDOGREL BISULFATE 300 MG TAB ONE (10:31)
--- NOTE | 2025-06-28 10:35 | Post Anesthesia Assessment ---
Date of Service June 28, 2025 Post Sedation Assessment Vital Signs Temp Pulse Pulse Resp BP Pulse Ox O2 Del Method 06/28/25 08:45 106 H 18 113/88 95 Room Air 06/28/25 08:00 98 H 06/28/25 07:10 36.3 C L 78 20 115/73 98 Room Air 06/28/25 05:20 102 H 16 118/72 96 Room Air 06/28/25 03:35 106 H 22 141/95 H 98 Room Air 06/28/25 03:22 55/30 L 06/28/25 03:00 36.5 C 110 H 18 152/106 H 97 Room Air 06/28/25 00:30 122 H 16 121/74 97 Room Air 06/28/25 00:30 121 H 06/27/25 22:34 36.6 C 53 L 18 133/66 97 Room Air 06/27/25 20:01 36.7 C 52 L 18 135/82 97 Room Air 06/27/25 15:39 36.7 C 54 L 21 131/79 97 Room Air 06/27/25 14:00 56 L 06/27/25 10:55 36.8 C 56 L 20 153/85 H 99 Room Air Recovery Score Activity: Moves 4 extremities Respiration: Deep Breath/Cough Circulation: +/-20% PreAnes Value Consciousness: Arouseable (by name) Oxygen Saturation: > 92% On Room Air Discharge Sedation Level of Care: Fast Track Phase II Post Sedation Plan On clinical assessment, the patient appears to have tolerated the sedation without complications. Patient is recovering as anticipated. Patient will continue to be monitored by nursing and may be discharged when sedation discharge criteria are met per below protocol. Upon Completions of procedure up to 15 minutes continue every 5 minute vital signs and the P.A.R. score; then discharge to a Phase I or Fast Track to Phase II per the following guidelines: * Discharge Patient to appropriate Phase II area if PAR is 8 or greater or return to pre- procedure baseline. The post - procedure orders will be as directed. * If PAR score is less than 8 or not return to pre-procedure baseline then patient will follow Phase I monitoring till PAR is reached for Phase II. The Phase I may be done in procedure room or may call to secure a Phase I area. * If naloxone or flumazenil are used for reversal, hold in Phase I for continued monitoring from when last reversal dose was given for a minimum of 60 minutes or longer pending the nurse and/or physician discretion of patient condition before discharge to Phase II. Please call the Sedation Physician to re-evaluate and complete post-note for discharge to Phase II area. Do NOT discharge from procedure sedation or Phase 1 until post- sedation evaluation note is complete by procedure /sedation MD Sedation Discharge Instructions to be given to the patient at discharge to home. [facility] Procedure Codes (Charges) Indication for Procedure Indication for procedure: NSTEMI
--- NOTE | 2025-06-28 11:42 | Electrocardiogram Report ---
Test Reason : Blood Pressure : */* mmHG Vent. Rate : 95 BPM Atrial Rate : * BPM P-R Int : * ms QRS Dur : 92 ms QT Int : 328 ms P-R-T Axes : * 40 -12 degrees QTcB Int : 412 ms Atrial fibrillation with premature ventricular or aberrantly conducted complexes Nonspecific T wave abnormality Abnormal ECG When compared with ECG of 26-Jun-2025 05:23, Atrial fibrillation has replaced Sinus rhythm Vent. rate has increased by 41 bpm T wave inversion less evident in Inferior leads T wave inversion no longer evident in Anterior leads QT has shortened Confirmed by Beni Edward ([id number]) on 06/28/2025 11:42:29 AM Referred By: REFERRED SELF Confirmed By: Beni Edward
--- NOTE | 2025-06-28 11:47 | Electrocardiogram Report ---
Test Reason : Blood Pressure : */* mmHG Vent. Rate : 125 BPM Atrial Rate : * BPM P-R Int : * ms QRS Dur : 78 ms QT Int : 316 ms P-R-T Axes : * 13 -34 degrees QTcB Int : 456 ms Atrial fibrillation with rapid ventricular response Poor R wave progression, consider anterior NV vs. lead placement vs. LVH Abnormal ECG When compared with ECG of 28-Jun-2025 03:29, ST now depressed in Anterior leads T wave inversion now evident in Anterior leads Confirmed by Beni Edward ([id number]) on 06/28/2025 11:47:18 AM Referred By: REFERRED SELF Confirmed By: Beni Edward
--- NOTE | 2025-06-28 14:28 | Hospitalist Progress Note ---
Date of Service June 28, 2025 Assessment & Plan (1) Atrial fibrillation with RVR: (2) Chest pain: (3) Hypophosphatemia: (4) Non-ST elevation [place] (NSTEMI): Plan This is a 50 y/o male with no cardiac history who presented to the ED today with acute onset of chest pain radiating to left arm and left jaw and a probable syncopal event at home (unwitnessed). Work-up in the ED revealed atrial fibrillation with RVR on presention, initial rate in the 160s. Initial troponin was 538.6, repeat troponin was 416.5. Pt was given diltiazem 15 mg IV then 25 mg IV in the ED, converted to NSR with current rate in the 70s. Phosphorus found to be markedly low at <1.0 - repletion both IV and oral has been started. Pt referred for admission for further evaluation and management. NSTEMI Presented with chest pain and noted to have anterolateral and inferior ST-T wave abnormality Associated increasing elevation of troponin Echo of the heart showed LV systolic function mild to moderately reduced with EF 40 to 45%, apical akinesis, mild anteroseptal, anterior and apical and apical s eptal wall akinesis, atypical echoes consistent with trabeculae are noted cannot rule out associated thrombi, there is mild tricuspid regurgitations and grade 1 diastolic dysfunction Received 324 mg atropine in the ED and continued on 81 mg and statin was added Hemoglobin A1c is 4.8 and lipid profiles unremarkable Appreciate cardiology input and recommendation Remains asymptomatic and hemodynamically stable Status post cardiac cath with findings of: 95% mid LAD 50% ostial D1 60% ostial OM1 40% proximal RPDA Status post PCI in LAD and has been getting aspirin and Plavix Has been on metoprolol succinate 25 mg twice daily and also lisinopril 5 mg daily Likely discharge tomorrow #Atrial fibrillation with RVR - likely related to electrolyte abnormality noted in the ED - Heparin drip, standard drip with bolus for now - will discuss need for future anticoagulation with cardiology pending clinical course. - Start metoprolol succinate 25 mg BID, has converted to NSR in the ED Rate is controlled with current medications and will observe Rate is tachycardic now #Hypophosphatemia - unclear etiology - Repletion started in the ED - will recheck BMP and phos Q6 hrs starting at 5 pm today - Consult nephrology for assistance for work-up and management - Check vitamin D levels, parathyroid hormone, CK-vitamin D is in low, parathormone is elevated and CK level has been normal Hospital level has been normalized Will get 50,000 of vitamin D weekly for 6 weeks and then daily requirements Phosphorus level is low at 1.8 and there was adequately replaced Will monitor level Code status: full code DVT prophylaxis: on heparin gtt Admission and Anticipated Discharge Date Admission Date: June 25, 2025 Subjective 06/26/2025 The patient was seen and examined in telemetry unit He was admitted with chest pain and that has been controlled with current medications Seems to have a non-ST elevation [place] but remains asymptomatic Will have cardiac cath tomorrow 06/27/2025 The patient was seen and examined in telemetry unit He remains stable without any chest pain and/or palpitation Awaiting cardiac cath tomorrow 06/28/2025 The patient was seen and examined in telemetry unit in presence of the family members He has had an attack of what felt like to be vasovagal syncope last night which resolved with lying down and taking IV fluid of 500 mL Status post cardiac cath with LAD stent placement He has been feeling much better now Review of Systems Review of Systems: All systems reviewed and are unremarkable except as noted below Physical Exam Physical Exam: Lying in bed without any acute distress Constitutional: well developed, well nourished and average body habitus; not ill appearing Eyes: PERRL, conjunctivae normal, anicteric sclerae ENMT: external ear and nose normal, oropharynx normal Neck: trachea midline, no thyromegaly Respiratory: no respiratory distress Auscultation: lungs clear to auscultation bilaterally Cardiovascular: Rate/Rhythm: regular rate and regular rhythm; not tachycardic Heart Sounds: normal S1 and normal S2; no murmur Extremities: no edema Gastrointestinal (Abdomen): Inspection/Auscultation: normal bowel sounds; abdomen not distended Percussion/Palpation: abdomen soft; abdomen nontender Neurologic: normal touch/pain/proprioception and moves all extremities; no focal motor deficits Psychiatric: A+Ox3, euthymic affect Lymphatic: no cervical or axillary lymphadenopathy Results & Data Results & Data Vital Signs (Past 12 Hours) Vital Signs Temp Pulse Pulse Resp BP Pulse Ox O2 Del Method 06/28/25 13:21 137 H 15 142/94 H 96 Room Air 06/28/25 12:21 36.6 C 134 H 16 123/73 97 Room Air 06/28/25 11:51 36.6 C 132 H 16 124/79 97 Room Air 06/28/25 11:37 36.3 C L 73 18 127/80 98 Room Air 06/28/25 11:24 116 H 06/28/25 10:55 86 18 115/99 96 Room Air 06/28/25 10:40 82 18 132/96 98 Room Air 06/28/25 08:45 106 H 18 113/88 95 Room Air 06/28/25 08:00 98 H 06/28/25 07:10 36.3 C L 78 20 115/73 98 Room Air 06/28/25 05:20 102 H 16 118/72 96 Room Air 06/28/25 03:35 106 H 22 141/95 H 98 Room Air 06/28/25 03:22 55/30 L 06/28/25 03:00 36.5 C 110 H 18 152/106 H 97 Room Air Laboratory Results Short CBC 06/28/25 Range/Units 03:42 WBC 9.08 (4.8-10.8) K/ul Hgb 17.3 (14.0-18.0) g/dl Hct 49.8 (42.0-52.0) % Plt Count 177 (130-400) K/uL BMP 06/28/25 03:44 Sodium 138 Potassium 4.0 Chloride 106 Carbon Dioxide 20 L BUN 16 Creatinine 1.11 Glucose 119 H Calcium 9.6 Medications Administered Current Inpatient Medications Acetaminophen (Acetaminophen 325 Mg Tab) 650 mg PO Q4H PRN PRN Reason: Pain or Fever Stop: 07/25/25 16:50 Aspirin (Aspirin 81 Mg Ectab) 81 mg PO [facility] Stop: 07/26/25 08:59 Last Admin: 06/28/25 08:12 Dose: 81 mg Atorvastatin Calcium (Atorvastatin 40 Mg Tab) 80 mg PO [facility] Stop: 07/25/25 15:59 Last Admin: 06/28/25 08:12 Dose: 80 mg Clopidogrel Bisulfate (Clopidogrel Bisulfate 75 Mg Tab) 75 mg PO [facility] Stop: 07/29/25 08:59 Ergocalciferol (Ergocalciferol 1250 Mcg (50,000 Units) Cap) 1,250 mcg PO Q7D@00 [facility] Stop: 07/26/25 13:44 Last Admin: 06/26/25 14:25 Dose: 1,250 mcg Heparin Sodium/Dextrose (Heparin 79174 Unit/500 Ml D5w) 25,000 units in 500 mls @ 29 mls/hr IV .[id number] [facility]; Protocol Stop: 07/25/25 12:44 Last Admin: 06/28/25 12:21 Dose: 1,450 units/hr, 29 mls/hr Lisinopril (Lisinopril 5 Mg Tab) 5 mg PO QAM [facility] Stop: 07/27/25 10:14 Last Admin: 06/28/25 08:12 Dose: Not Given Metoprolol Succinate (Metoprolol Succ 25mg Ext Rel Tab) 25 mg PO BID [facility] Stop: 07/25/25 15:59 Last Admin: 06/28/25 04:07 Dose: 25 mg (2) Chest pain Chest pain type: unspecified Qualified Code(s): R07.9 - Chest pain, unspecified
--- NOTE | 2025-06-28 16:37 | Cardiac Catheterization ---
[facility] Data: Audio Visual Equipment Rental Clerk Cardiac Status Clinical evaluation leading to the procedure CAD Presenation: Non STEMI Anginal Classification: CCS IV Heart Failure: NYHA Class: CCS III Cardiogenic Shock within 24 Hours: No Cardiac Arrest within 24 Hours: No Imaging Studies Past 6 Months: Yes Coronary Anatomy Dominant: Right (See diagnostic catheter report) Diagnostic Physicians Name: Luis Alberto Will MD, PhD Closure Device Percutaneous Entry Location: Radial Closure Device: Radial Band Recommendations: Medical Therapy and/or Counseling and PCI without planned CABG (PCI LAD) PCI Indication: PCI for high risk Non-SIVA Lesion Segment Name: Mid LAD Culprit Artery: Yes Stenosis Prior to Rx (%): 95% Chronic Total Occlusion: No Pre-Procedure RUSS Flow: 2 Previously Treated Lesion: No Lesion Complexity: Non-High/Non-C Lesion Length (mm): 12 Thrombus Present: Yes Bifurcation Lesion: No Guidewire Across Lesion: Yes Intraprocedure Events Significant Disection: No Perforation: No Cardiac Cath Procedure Full Procedure Date June 28, 2025 Pre-Procedure Diagnosis Pre-Procedure Diagnosis: Non STEMI and Cardiomyopathy (LVEF 40-45%) AUC Score AUC Score: 8 Post-Procedure Diagnosis Post-Procedure Diagnosis: Severe CAD Procedure(s) Performed Procedure(s) Performed: Coronary Angiography Director Of Knowledge Management Luis Alberto Will MD, PhD Valve Fitter(s) LANDON Delaney Estimated Blood Loss Estimated Blood Loss: 5cc Medication(s) Medication(s): Fentanyl, Heparin, Nicardipine, Nitroglycerin and Versed Summary of Findings Brief description: Patient was already on the table shaved and prepped in sterile fashion. He had a 6 Slovak radial glide sheath in place after completing diagnostic coronary angiography performed by Dr. Ugalde. I was asked to perform PCI on the LAD. Additional sedation was provided using fentanyl and Versed. Patient also received additional anticoagulation after the ACT was checked. This was repeated multiple times throughout the case to ensure therapeutic anticoagulation. Finally, patient also received antispasmodics including nicardipine and nitroglycerin. A 6 Slovak EBU 3.0 guide catheter was advanced over the J-wire and used to engage the left main coronary. A BMW universal guidewire was then advanced under fluoroscopic guidance and positioned distally in the LAD. Lesion in the mid LAD was predilated with a 2.5 x 12 mm trek balloon. There was multiple inflations but "watermelon seeding" occurred. We therefore did a final inflation at a slower inflation rate up to 8 dino with good results. A 2.5 x 18 mm Geoff drug-eluting stent was then positioned across the lesion and deployed at 14 dino. Stent balloon was removed and baccarat manager angiography performed. Postdilatation of the proximal portion of the stent with a 2.5 x 8 mm NC Nathaniel balloon at 18 dino. Balloon was removed followed by the guidewire. Final angiographic evaluation was performed in orthogonal views. The guide catheter was then removed. Radial artery sheath was removed. Hemostasis was obtained using a TR band. Patient was hemodynamically stable and asymptomatic. He was returned to the recovery area in stable condition. This ended the case. PCI of LAD findings: 95% stenosis is reduced to 0% stenosis post PCI RUSS-3 flow post PCI (RUSS II flow on diagnostic) No evidence of dissection or perforation post PCI Summary: 1. Successful PCI of the mid LAD with implantation of a drug-eluting stent. Good angiographic outcome. 2. Guideline directed medical therapy for secondary prevention of coronary disease to include; statin, MARGRET inhibitor, and beta-tyler. No aspirin given need for anticoagulant. 3. Patient's "dual antiplatelet therapy" will include Plavix 75 mg daily and Eliquis 5 mg p.o. twice daily. Hemodynamics Rest Ao:: 93/64 mmHg Final Ao: 109/79 mmHg LV: Not performed Recommendations Recommendations: Medical Therapy and/or Counseling and PCI without planned CABG (PCI LAD) Specimens Specimens: None Radiation Exposure (mGy) 2064 mGy, fluoroscopy time 10.3 minutes Contrast (mls) 110 cc Fluids (cc crystalloids) Fluids (cc crystalloids): 250cc Nss bolus Drains Drains: N/A Anesthesia 1 mg Versed, 25 mcg fentanyl IV. Start 957, end 102 Procedural Complication(s) None Disposition Audio Visual Equipment Rental Clerk Holding/Recovery I attest to the content of the Intraoperative Record and any orders documented therein. Any exceptions are noted below. MinicabsterG Card Cath Procedure Codes Moderate Sedation Procedure 1: Sedation/Anesthesia: 80932 Mod Sedation by a different physician ;Init15 Min Child Age 5&Up (Initial 15 minutes, hair machine operator. Start 957) Procedure 2: Sedation/Anesthesia: 12231 Mod Sedation by a different physician;Ea Additional 15 Minutes (Additional 13 min, hair machine operator, and 1026) Stenting Procedure 1: Cardiovascular Stent Procedures: 99203 [facility] transluminal revascularization of acute sub/total occl, aMI (LD) PG Care Time/CCT Total # of Minutes Spent Total Time Spent with Patient: Total time spent is greater than 50% in coordination of care (as documented) at patient's floor/unit and/or counseling patient:
--- NOTE | 2025-06-28 17:04 | Nephrology Progress Note ---
Date of Service June 28, 2025 Assessment & Plan (1) Hypophosphatemia: Plan: Severe hypophosphatemia with Phos levels less than 1 on presentation and dipping again to 1.8 this morning. notably he also had AGMA both times that he had low Phos for unclear reasons. Calcium magnesium and potassium of all been within normal limits. No history of pathologic fractures, decreased p.o. 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, no chronic diarrhea +h/o vitamin D deficiency and HPTH cause remains unclear >DDX > fanconi's syndrome versus hyperparathyroidism/vitamin D deficiency; less likely tubular defect Possibly 2/2 hyperparathyroidism (PTH 104) and vitamin D deficiency; his 25 OH levels are low from admission >> difficult to assess this w/ urine studies now that phos corrected >repeat Phos again this evening -continue high dose VD,50,000u weekly >d/c with OP neph f/u and frequent phos monitoring -replete 25 OH vd ( aim for levels between 30-40), If PTH levels are still high he will needs CT neck to look for Adenoma. Unlikely tubular defect,Fe phosphorus should have been done when he had hypophosphatemia, he has had phosphorus infusion,results will be difficult to interpret if it is done now. This can be done if the phosphorus level decrease again. (2) Non-ST elevation MT (NSTEMI): Plan: He is on heparin drip, s/p cardiac cath 06/28 w/ LAD stent (3) Atrial fibrillation with rapid ventricular response: Plan: s/p cardiac cath today Admission and Anticipated Discharge Date Admission Date: June 25, 2025 Subjective had cardiac cath today severe LAD disease noted; had angioplasty and stent. Overnight patient had severe chest pain with hypotension/systolic blood pressures in the 50s; tolerated half liter fluid bolus Review of Systems 2 Review of Systems: All systems reviewed & are unremarkable except as noted in Subjective Physical Exam 2 Constitutional: well developed and well nourished Eyes: EOM intact bilaterally ENMT: Mouth: + dry oral mucous membranes Respiratory: normal respiratory effort Auscultation: + diminished lung sounds Cardiovascular: Rate/Rhythm: + tachycardic Extremities: no edema Gastrointestinal (Abdomen): Inspection/Auscultation: normal bowel sounds P ercussion/Palpation: abdomen soft; abdomen nontender Musculoskeletal: Extremities: strength 5/5 throughout Skin: no rashes, warm and dry Neurologic: henderson, fluent speech, no tremor Results & Data Vital Signs (Past 12 Hours) Vital Signs Temp Pulse Pulse Resp BP Pulse Ox O2 Del Method 06/28/25 16:20 36.8 C 98 H 18 121/87 97 Room Air 06/28/25 14:59 110 H 06/28/25 14:41 36.4 C L 118 H 12 117/74 97 Room Air 06/28/25 13:21 137 H 15 142/94 H 96 Room Air 06/28/25 12:21 36.6 C 134 H 16 123/73 97 Room Air 06/28/25 11:51 36.6 C 132 H 16 124/79 97 Room Air 06/28/25 11:37 36.3 C L 73 18 127/80 98 Room Air 06/28/25 11:24 116 H 06/28/25 10:55 86 18 115/99 96 Room Air 06/28/25 10:40 82 18 132/96 98 Room Air 06/28/25 08:45 106 H 18 113/88 95 Room Air 06/28/25 08:00 98 H 06/28/25 07:10 36.3 C L 78 20 115/73 98 Room Air 06/28/25 05:20 102 H 16 118/72 96 Room Air Laboratory Results 06/28/25 03:42 06/28/25 03:44 phos 1.8 this AM > had repletion IV
[2025-06-29 05:36] LABS: Hematocrit (blood only) 46.0 % (42.0-52.0); Hemoglobin 16.2 g/dl (14.0-18.0); Immature Granulocytes # (auto) 0.02 K/uL (0.01-0.20); Immature Granulocytes % (auto) 0.2 %; Mean Corpuscular Hemoglobin 31.8 pg (25.0-34.0); Mean Corpuscular Volume 90.2 fL (80.0-100.0); Platelet Count 144 K/uL (130-400); RDW Standard Deviation 39.5 fL (36.4-46.3); Red Blood Count 5.10 M/uL (4.70-6.10); White Blood Count 8.05 K/ul (4.8-10.8)
[2025-06-29 05:51] LABS: Anion Gap 6.0 (3-11); Blood Urea Nitrogen 15.0 mg/dl (6-23); Calcium 9.0 mg/dl (8.6-10.3); Carbon Dioxide 24.0 mmol/L (21-32); Chloride 108.0 mmol/L (98-107); Creatinine Clr Calc Pharmacy 100.9 ml/min; Glucose 105.0 mg/dl (70-99(Fasting)); Magnesium 1.9 mg/dl (1.7-2.4); Potassium 4.5 mmol/L (3.5-5.1); Sodium 138.0 mmol/L (136-145)
[2025-06-29 06:06] LABS: ANTI-Xa, UFH(UnfractionatedHep 0.61 IU/ml (0.3-0.7)
[2025-06-29] MEDS: APIXABAN 5 MG TABLET PO SCH (09:18)
[2025-06-29] MEDS: CLOPIDOGREL BISULFATE 75 MG TAB PO SCH (09:19)
--- NOTE | 2025-06-29 10:04 | Nephrology Progress Note ---
Date of Service June 29, 2025 Assessment & Plan (1) Hypophosphatemia: Plan: Severe hypophosphatemia with Phos levels less than 1 on presentation and dipping again to 1.8 9/2 but appropriate last evening and today. notably he also had AGMA both times that he had low Phos for unclear reasons. Calcium magnesium and potassium of all been within normal limits. No history of pathologic fractures, decreased p.o. 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 +h/o vitamin D deficiency and HPTH cause remains unclear >DDX > fanconi's syndrome versus hyperparathyroidism/vitamin D deficiency; less likely tubular defect phos 3.5 today, calcium 9.0, AG 6 >> no evidence of recurrent AGMA or low phos at this time Possibly 2/2 hyperparathyroidism (PTH 104) and vitamin D deficiency; his 25 OH levels are low from admission >> difficult to assess this w/ urine studies now that phos corrected -daily bmp, phos while in house >>ordered dietary c/s on high phos OP foods -continue high dose VD,50,000u weekly >d/c with OP neph f/u and frequent phos monitoring as below -replete 25 OH vd ( aim for levels between 30-40), If PTH levels are still high he will needs CT neck to look for Adenoma. Unlikely tubular defect,Fe phosphorus should have been done when he had hypophosphatemia, he has had phosphorus infusion,results will be difficult to interpret if it is done now. This can be done if the phosphorus level decrease again. NEPH D/C RECS DX -critical hypophosphatemia -Hyperparathyroidism -anion gap metabolic acidosis -severe LAD coronary disease > s/p stent, NSTEMI RX -D2 57175 units TWICE weekly OTHER CARE -check BMP, phos weekly x 6 w/ PCP; PTH 25 OHD, ACR, UACM to be ordered by neph nurse in 2 wks' time -avoid excessive OTC or prescription antacids >2 servings of high phos foods daily which are ALSO heart healthy F/U Appts -hospital d/c appt w/ me in 4-6 wks with lab orders above by neph nurse; if PTH elevated will need 24 hr urine study and scan for PTH adenoma; pt to bring home bp cuff along to visit if he has one Care coordinated with Dr Yazmin chappell d/c meds, f/u care and appts, labs; we are in agreement. (2) Non-ST elevation NC (NSTEMI): Plan: He is on heparin drip, s/p cardiac cath 06/28 w/ LAD stent (3) Atrial fibrillation with rapid ventricular response: Plan: s/p cardiac cath 06/28 and converted spontaneously day of procedure Admission and Anticipated Discharge Date Admission Date: June 25, 2025 Subjective no acute interval events clinically except last evening late converted from AF /RVR to NSR; no sob, no crampls; questions about diet Review of Systems 2 Review of Systems: All systems reviewed & are unremarkable except as noted in Subjective Physical Exam 2 Constitutional: well developed and well nourished Eyes: EOM intact bilaterally ENMT: Mouth: + dry oral mucous membranes Respiratory: normal respiratory effort Auscultation: + diminished lung sounds Cardiovascular: Rate/Rhythm: + tachycardic Extremities: no edema Gastrointestinal (Abdomen): Inspection/Auscultation: normal bowel sounds P ercussion/Palpation: abdomen soft; abdomen nontender Musculoskeletal: Extremities: strength 5/5 throughout Skin: no rashes, warm and dry Results & Data Vital Signs (Past 12 Hours) Vital Signs Temp Pulse Pulse Resp BP Pulse Ox O2 Del Method 06/29/25 09:18 61 06/29/25 07:14 36.6 C 54 L 18 131/74 96 Room Air 06/29/25 07:00 52 L 06/29/25 03:07 36.7 C 58 L 18 132/90 98 Room Air 06/28/25 22:01 36.8 C 59 L 18 118/78 98 Room Air Laboratory Results 06/29/25 05:22 06/29/25 05:22 phos 1.8 > 3.5>3.7
[2025-06-29 12:08] VITALS: RESP 16
--- NOTE | 2025-06-29 15:43 | Cardiology Progress Note ---
Date of Service June 29, 2025 Assessment & Plan (1) Non-ST elevation AK (NSTEMI): (2) Status post insertion of drug-eluting stent into left anterior descending (LAD) artery: (3) New onset a-fib: (4) HTN, goal below 130/80: Plan 50-year-old male with NSTEMI status post drug-eluting stent implantation to left anterior descending artery. Recovering well without recurrent anginal symptoms. Converted from atrial fibrillation to sinus rhythm/sinus bradycardia overnight. Discussed importance of continuing clopidogrel uninterrupted for minimum of 12 months post NSTEMI/ ADRIAN implantation. Continue Eliquis, lisinopril,metoprolol succinate, and atorvastatin. Patient may discontinue low-dose aspirin. Outpatient cardiology follow-up in 2 weeks. Postcardiac catheterization activity restrictions listed below. ACTIVITY RECOMMENDATIONS: It is common to feel weak and fatigue for a few days. * Do not drive or operate any motorized equipment for the next three days. * Limit stair usage (2 or 3 trips a day only) for the next three days. * Do not lift anything heavier than 10 pounds for the next three days. * Do not engage in vigorous exercise or any sports for the next five days. * You may shower the day after your procedure, but do not immerse the area for three days. Cleanse the site gently with soap and water. SPECIAL CARE INSTRUCTIONS: * You may replace the pressure dressing or band-aid the morning after the procedure. * After your procedure, it is normal to have a small bruise or small lump at the site. Examine your site daily for any change in the bruise or lump, redness, swelling, drainage or numbness. Notify your doctor if any change. BLEEDING: * If there is a small amount of bleeding at the site, lie down and apply firm pressure with a clean cloth for ten minutes. When the bleeding stops, lie quietly keeping the procedure limb straight for six hours. Notify your doctor as soon as possible. * If the bleeding does not stop after ten minutes or if there is a large amount of bleeding or spurting, call 911 immediately. Continue to lie down and hold firm pressure until help arrives. SKIN IRRITATION: * You may experience some redness and/or swelling in the area where radiation was administered. If any skin irritation occurs, please contact your family physician. FOLLOW UP VISIT: Keep any scheduled doctor appointments. Admission and Anticipated Discharge Date Admission Date: June 25, 2025 Subjective 50 the bedside. Converted to normal sinus rhythm last evening. Denies chest pain or shortness of breath. Mild right wrist ecchymosis noted. Tolerating current medications. Offers no concerns/complaints. Review of Systems Review of Systems: All systems reviewed & are unremarkable except as noted in Subjective Physical Exam Constitutional: well nourished; no acute distress ENMT: Mallampati Class: II Respiratory: normal respiratory effort; no respiratory distress, no labored breathing and no retractions Auscultation: no crackles, no rales, no rhonchi and no wheezes Cardiovascular: Rate/Rhythm: + irregularly irregular Heart Sounds: normal S1 and normal S2; no murmur Vessels: femoral pulses present and radial pulses present; no JVD and no carotid bruit Extremities: no edema Gastrointestinal (Abdomen): Inspection/Auscultation: abdomen normal to inspection and normal bowel sounds; abdomen not distended Percussion/Palpation: abdomen soft; abdomen nontender, no guarding and abdomen not rigid Neurologic: CN's II-XI intact bilaterally and moves all extremities Results & Data Vital Signs (Past 12 Hours) Vital Signs Temp Pulse Pulse Resp BP Pulse Ox O2 Del Method 06/29/25 14:25 54 L 06/29/25 12:07 36.5 C 54 L 16 145/87 H 98 Room Air 06/29/25 09:18 61 06/29/25 07:14 36.6 C 54 L 18 131/74 96 Room Air 06/29/25 07:00 52 L PG Care Time/CCT Total # of Minutes Spent Total Time Spent with Patient: Total time spent is greater than 50% in coordination of care (as documented) at patient's floor/unit and/or counseling patient: Coding Level of Care Code 09183 SUB INP/OBS CARE 3/50MIN Diagnoses Non-ST elevation AK (NSTEMI) I21.4 Status post insertion of drug-eluting stent into left anterior descending (LAD) artery Z95.5 New onset a-fib I48.91 HTN, goal below 130/80 I10
--- NOTE | 2025-06-29 15:58 | Discharge Summary ---
Discharge Summary Date of Service June 29, 2025 Principal Dx & Hospital Course #1 = Principal Diagnosis (1) Atrial fibrillation with RVR: (2) Chest pain: (3) Hypophosphatemia: (4) Non-ST elevation OK (NSTEMI): Plan Mr Brown is a 50 y/o male with medical history admitted for NSTEMU. Work-up in the ED revealed atrial fibrillation with RVR on presentation, initial rate in the 160s. Initial troponin was 538.6, repeat troponin was 416.5. Pt was given diltiazem 15 mg IV then 25 mg IV in the ED, converted to NSR with current rate in the 70s. Phosphorus found to be markedly low at <1.0 - repletion both IV and oral has been started. Patient underwent LHC with drug-eluting stent implantation to left anterior descending artery. Post cath was uncomplicated . Nephrology was consulted for hypophosphatemia with differential of fanconis v hyperPTH/Vit D deficiency On day of discharge, patient was chest pain free and in NSR #NSTEMI #Obstructive CAD s/p ADRIAN to LAD Echo of the heart showed LV systolic function mild to moderately reduced with EF 40 to 45%, apical akinesis, mild anteroseptal, anterior and apical and apical septal wall akinesis, atypical echoes consistent with trabeculae are noted cannot rule out associated thrombi, there is mild tricuspid regurgitations and grade 1 diastolic dysfunction Hemoglobin A1c is 4.8 and lipid profiles unremarkable Appreciate cardiology input and recommendation Remains asymptomatic and hemodynamically stable Status post cardiac cath with findings of: 95% mid LAD 50% ostial D1 60% ostial OM1 40% proximal RPDA Continue metoprolol succinate 25 mg twice daily and lisinopril 5 mg daily Continue on eliquis and plavix #Atrial fibrillation with RVR * NSR on D/C - continue metoprolol succinate 25 mg BID, has converted to NSR in the ED -transitioned to eliquis bid #Hypophosphatemia - unclear etiology cause remains unclear >DDX > fanconi's syndrome versus hyperparathyroidism/vitamin D deficiency; less likely tubular defect Continue Vit D2 50,000 2xwks Encouraged 2 portions of high phos foods >>ordered dietary c/s on high phos OP foods >d/c with OP neph f/u and frequent phos monitoring as below Notes For Next Care Provider -check BMP, phos weekly x 6 w/ PCP; PTH 25 OHD, ACR, UACM to be ordered by neph nurse in 2 wks' time -hospital d/c appt w/ Nephrology in 4-6 wks with lab orders above by neph nurse; if PTH elevated will need 24 hr urine study and scan for PTH adenoma; pt to bring home bp cuff along to visit if he has one Medication Changes From Visit Lisinopril 5mg daily Metoprolol 50mg BID Eliquis 5mg BID Plavix 75mg daily Atorvastatin 80mg daily Vitamin D2 17945 and Friday Admission HPI Per Admitting Provider This is a 50 y/o male with sciatica but no significant cardiac history who presents to the ED today with left chest pain that started this morning. He was home alone this mon and went to the bathroom, thinks that he passed out as the next thing that he remembers is waking up on the floor with no memory of how he got there. He lay on the floor for a few minutes then tried to get up. Notes that he felt very dizzy and was diaphoretic but was able to get up and walk over to neighbors for help, asked them to bring him to the ED. He describes episodes of feeling like he was being squeezed tightly ("like being bear hugged") and thus was unable to breathe - he recalls this happening at least seven times. Describes chest pain in left chest that radiated to the left jaw and left arm that has since resolved in the ED. [place] work is very physically active, does not typically have significant chest pain or dyspnea. He was off work yesterday but felt fine at work two days ago. Last w , he started with increased fatigue, which has continued - attributed to overdoing it at work but now questioning if this was related to today's symptoms. His father of an [place] in his 50s. 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 Reports that he has been staying hydrated. No recent diarrhea, abdominal pain, urinary symptoms, fevers, chills. Admission Exam Per Admitting Provider Constitutional: WD/WN, vitals as above, NAD, sitting up in bed, pleasant, conversing easily Respiratory: normal respiratory effort, lungs clear to auscultation, no wheeze, rales, rhonchi. Normal insp/exp effort, no accessory muscle use Cardiovascular: RRR, no murmur, no edema Vessels: no JVD or carotid bruit Chest: normal inspection of chest Abdomen: normal bowel sounds, soft, nontender, no hepatosplenomegaly Musculoskeletal: no cyanosis or clubbing, extremities motor strength 5/5 Skin: no rashes, warm and dry normal turgor Neurologic: PERRL, EOMI, accommodation nl, no face palsy, no dysarthria CN's II- XI intact bilaterally and moves all extremities Psychiatric: A+Ox3, euthymic affect Discharge Exam Constitutional WD/WN, vitals as above Respiratory normal respiratory effort, lungs clear to auscultation Cardiovascular RRR, no murmur, no edema Musculoskeletal no cyanosis or clubbing, extremities motor strength 5/5 Updated Medication List Medication Instructions Recorded Confirmed Type apixaban 5 mg tablet (Eliquis) 5 mg PO BID 30 days #60 tabs 06/29/25 Rx atorvastatin 80 mg tablet 80 mg PO QAM 30 days #30 tabs 06/29/25 Rx clopidogrel 75 mg tablet 75 mg PO QAM 30 days #30 tabs 06/29/25 Rx ergocalciferol (vitamin D2) 1,250 1,250 mcg PO 2XWK 30 days #10 caps 06/29/25 Rx mcg (50,000 unit) capsule lisinopril 5 mg tablet 5 mg PO QAM 30 days #30 tabs 06/29/25 Rx metoprolol succinate 25 mg 25 mg PO BID 30 days #60 tabs 06/29/25 Rx tablet,extended release 24 hr Hospital Stay Data Consultations 06/25/25 11:55 ED Decision to Admit Stat 06/25/25 12:16 Consult Nephrology Routine 06/25/25 16:51 Consult Cardiology Routine Procedures Performed Operation Date: 06/28/25 10:00 Actual Procedures p Cineradiography w/Routine Exam - DO eric Leos Cath, Coronaries ONLY (no LV) - DO eric Leos Drug Eluting Stent SGl Vessel - Luis Alberto Will MD, PhD Diagnostic Imagining Performed 06/28/25 07:24 CL Cath Imgs for PACS use only Stat Discharge Instructions Given to Patient (Per Discharging Provider) You were admitted for chest pain and found to have blockages in your heart vessels. You received a drug-eluting stent implantation to left anterior descending artery You were started on multiple medications for your heart It is improtant to continue eliquis and Plavix without disruptions Please follow up with your PCP You were also noted to have low phosphorous. You will follow up with Nephrology for further evaluation. Please take D2 98208 units TWICE weekly ( and Friday) Please strive for 2 servings of high phos foods daily. Also follow a heart healthy diet. You will see the shop hand in 4-6 weeks Total Time Total Time Spent Total Time Spent (In Minutes): 45
[2025-06-29 16:17] VITALS: BP 131/77; PULSE 50; TEMP 97.5; O2SAT 94
--- NOTE | 2025-07-01 10:35 | Electrocardiogram Report ---
Test Reason : Blood Pressure : */* mmHG Vent. Rate : 72 BPM Atrial Rate : 72 BPM P-R Int : 140 ms QRS Dur : 90 ms QT Int : 358 ms P-R-T Axes : -14 -11 -18 degrees QTcB Int : 392 ms Normal sinus rhythm Poor R wave progression, consider anterior CT vs. lead placement vs. LVH Abnormal ECG When compared with ECG of 25-Jun-2025 10:30, Sinus rhythm has replaced Atrial fibrillation Vent. rate has decreased by 48 bpm Confirmed by Beni Edward ([id number]) on 07/01/2025 10:35:19 AM Referred By: REFERRED SELF Confirmed By: Beni Edward
[2025-07-01 13:47] LABS: Vitamin D2,1,25 <8 pg/mL
== END 2025-06-29 17:36 | disposition home or self-care (01) | DRG 322 ==
LOC: ED 09:13 → EDINP 12:33 → SUATTDRO 12:33 → 2S 15:49
PROC: CLB.CCO (2025-06-28 10:00)